=== PATIENT | female | born 1955 | race Two or more races ===

== ENCOUNTER 2019-07-26 10:16 | Inpatient (IN) | payer MEDICARE ==
[~2019-07-26] VITALS: Ht 162.6 cm; Wt 72.6 kg
[2019-07-26] MEDS ORDERED: POTASSIUM CHLO20 ME2 ORAL (10:23)
[2019-07-26] MEDS ORDERED: PRINIVIL10 MG ORAL (10:30)
[2019-07-26] MEDS ORDERED: DONEPEZIL HCL10 M2 ORAL (10:30)
[2019-07-26] MEDS ORDERED: NOVOLOG100 UNITS1 (10:30)
[2019-07-26] MEDS ORDERED: LEXAPRO10 MG ORAL (10:30)
[2019-07-26] MEDS ORDERED: CRESTOR20 MG ORAL (10:30)
[2019-07-26] MEDS ORDERED: QUETIAPINE FUMA50 MG ORAL (10:30)
[2019-07-26] MEDS ORDERED: LEVEMIR FL100 UNIT/1 SUBQ (10:30)
[2019-07-26] MEDS ORDERED: AMLODIPINE BESY10 MG ORAL (10:30)
[2019-07-26] MEDS ORDERED: NEXIUM40 MG ORAL (10:30)
[2019-07-26 10:50] VITALS: BP 128/88
[2019-07-26] MEDS ORDERED: Cefepime HCl 2 GM in NS 110 ML IV SCH (11:45)
[2019-07-26] MEDS ORDERED: Vancomycin 1 GM in NS 275 ML IV ONE (11:45)
[2019-07-26 11:48] LABS: BASOPHILS % (AUTO) 1.1 % (0.0-2.0); EOSINOPHILS % (AUTO) 0.9 % (0.0-3.0); HEMATOCRIT 41.5 % (37.0-47.0); HEMOGLOBIN 14.1 G/DL (12.0-16.0); LYMPHOCYTES % (AUTO) 17.9 % (20.0-45.0); MEAN CORPUSCULAR VOLUME 85 FL (80-99); MONOCYTES % (AUTO) 5.2 % (1.0-10.0); NEUTROPHILS % (AUTO) 74.9 % (45.0-75.0); PLATELET COUNT 230 K/UL (150-450); RED BLOOD COUNT 4.89 M/UL (4.20-5.40); RED CELL DISTRIBUTION WIDTH 10.1 % (11.6-14.8); WHITE BLOOD COUNT 7.4 K/UL (4.8-10.8)
[2019-07-26 12:00] LABS: ANION GAP 2 mmol/L (5-15); BLOOD UREA NITROGEN 19 mg/dL (7-18); CALCIUM 8.5 MG/DL (8.5-10.1); CARBON DIOXIDE 36 MMOL/L (21-32); CHLORIDE 103 MMOL/L (98-107); CREATININE 1.2 MG/DL (0.55-1.30); SODIUM 141 MMOL/L (136-145)
[2019-07-26 12:14] LABS: ALANINE AMINOTRANSFERASE 15 U/L (12-78); ALBUMIN/GLOBULIN RATIO 0.6 (1.0-2.7); ALKALINE PHOSPHATASE 72 U/L (46-116); ASPARTATE AMINO TRANSFERASE 22 U/L (15-37); BILIRUBIN,TOTAL 0.6 MG/DL (0.2-1.0); CKMB 1.1 NG/ML (0.0-3.6); CREATINE KINASE 144 U/L (26-308)
[2019-07-26 12:40] LABS: APPEARANCE,URINE CLEAR; BILIRUBIN, URINE NEGATIVE (NEGATIVE); COLOR,URINE PALE YELLOW; GLUCOSE, URINE (UA) NEGATIVE (NEGATIVE); KETONES,URINE NEGATIVE (NEGATIVE); LEUKOCYTE ESTERASE ,URINE NEGATIVE (NEGATIVE); NITRITE,URINE NEGATIVE (NEGATIVE); PH,URINE 5 (4.5-8.0); PROTEIN,URINE 2+ (NEGATIVE); UROBILINOGEN,URINE NORMAL MG/DL (0.0-1.0)
--- NOTE | 2019-07-26 12:51 | Diagnostic Imaging Report ---
Indication: Cough Technique: One view of the chest Comparison: none Findings: Suboptimal inspiration. Lungs and pleural spaces are clear. The heart size is normal. Impression: No acute process
[2019-07-26 13:00] VITALS: BP 152/97
--- NOTE | 2019-07-26 14:41 | Diagnostic Imaging Report ---
Indication: Left foot pain Technique: 3 views left foot Comparison: none Findings: There is degenerative narrowing of the second third proximal interphalangeal joint. No acute fractures. No dislocations. There is mild hallux valgus and bunion formation. Impression: No acute process
--- NOTE | 2019-07-26 14:48 | Consultation ---
Consult Note Assessment/Plan A/ 1) Cellulitis left lateral ankle 2) Stage 4 pressure ulcer left ankle 3) DM 4) Altered P/ 1) I placed the following orders: ankle x-rays, wound care, ESR, CRP, wound cultures 2) Abx per ID 3) No surgical indication, will follow Thank you Juan Verdugo DPM Jul 26, 2019 14:48
--- NOTE | 2019-07-26 15:05 | Emergency Room Report ---
History of Present Illness General Chief Complaint: General Complaint Source: EMS Present Illness HPI 64-year-old female who presents to emergency room for left wound infection. Patient reports severe pain to the left heel with any movement. Patient's history is limited due to dementia. Patient's primary care doctor Dr. Willett saw patient and sent her in for further evaluation with likely admission and IV antibiotics. Allergies: Coded Allergies: No Known Allergies (Unverified , 07/26/19) Patient History Past Medical History: dementia Nursing Documentation-[facility] Past Medical History: No History, Except For Hx Hypertension: Yes Hx Diabetes: Yes History Of Psychiatric Problem: Yes Review of Systems All Other Systems: limited Narrative Unobtainable to obtain full ROS due to patient's dementia Physical Exam Vital Signs Date Time Temp Pulse Resp B/P (MAP) Pulse Ox O2 Delivery O2 Flow Rate FiO2 07/26/19 10:17 98.6 76 18 140/82 (101) 95 Room Air 07/26/19 10:50 98 Sp02 EP Interpretation: reviewed, normal General Appearance: no apparent distress, alert, GCS 15, non-toxic Head: normocephalic, atraumatic ENT: hearing grossly normal, normal pharynx, no angioedema, normal voice Neck: full range of motion, supple/symm/no masses Respiratory: chest non-tender, lungs clear, normal breath sounds, speaking full sentences Cardiovascular #1: regular rate, rhythm, no edema Gastrointestinal: normal bowel sounds, non tender, soft, non-distended, no guarding, no rebound Rectal: deferred Genitourinary: normal inspection, no CVA tenderness Musculoskeletal: other - Moves all extremities spontaneously, 2 cm ulceration noted to left heel, tender to palpation, surrounding erythema Neurologic: alert, responsive, motor strength/tone normal, sensory intact, speech normal, other - Oriented to person, not to time or place Psychiatric: mood/affect normal Medical Decision Making Diagnostic Impression: Primary Impression: Wound infection Additional Impression: Cellulitis ER Course 64-year-old female sent in for wound infection. Patient found to have ulceration to left ankle with surrounding cellulitis. Differential includes osteomyelitis, cellulitis, superficial wound infection, necrotizing fasciitis, Patient's wound noted to be erythematous with signs of infection. Patient to be admitted for IV antibiotics. Discussed case with Dr. Aguilera who accepted admission. Laboratory Tests Test 07/26/19 11:05 07/26/19 12:00 White Blood Count 7.4 K/UL (4.8-10.8) Red Blood Count 4.89 M/UL (4.20-5.40) Hemoglobin 14.1 G/DL (12.0-16.0) Hematocrit 41.5 % (37.0-47.0) Mean Corpuscular Volume 85 FL (80-99) Mean Corpuscular Hemoglobin 28.8 PG (27.0-31.0) Mean Corpuscular Hemoglobin Concent 34.0 G/DL (32.0-36.0) Red Cell Distribution Width 10.1 % (11.6-14.8) L Platelet Count 230 K/UL (150-450) Mean Platelet Volume 6.8 FL (6.5-10.1) Neutrophils (%) (Auto) 74.9 % (45.0-75.0) Lymphocytes (%) (Auto) 17.9 % (20.0-45.0) L Monocytes (%) (Auto) 5.2 % (1.0-10.0) Eosinophils (%) (Auto) 0.9 % (0.0-3.0) Basophils (%) (Auto) 1.1 % (0.0-2.0) Prothrombin Time 10.5 SEC (9.30-11.50) Prothrombin Time INR 1.0 (0.9-1.1) Sodium Level 141 MMOL/L (136-145) Potassium Level 4.0 MMOL/L (3.5-5.1) Chloride Level 103 MMOL/L (98-107) Carbon Dioxide Level 36 MMOL/L (21-32) H Anion Gap 2 mmol/L (5-15) L Blood Urea Nitrogen 19 mg/dL (7-18) H Creatinine 1.2 MG/DL (0.55-1.30) Estimate Glomerular Filtration Rate 45.3 mL/min (>60) Glucose Level 242 MG/DL (74-106) H Calcium Level 8.5 MG/DL (8.5-10.1) Total Bilirubin 0.6 MG/DL (0.2-1.0) Aspartate Amino Transferase (AST) 22 U/L (15-37) Alanine Aminotransferase (ALT) 15 U/L (12-78) Alkaline Phosphatase 72 U/L (46-116) Total Creatine Kinase 144 U/L (26-308) Creatine Kinase MB 1.1 NG/ML (0.0-3.6) Creatine Kinase MB Relative Index 0.7 Troponin I 0.000 ng/mL (0.000-0.056) Total Protein 7.8 G/DL (6.4-8.2) Albumin 3.0 G/DL (3.4-5.0) L Globulin 4.8 g/dL Albumin/Globulin Ratio 0.6 (1.0-2.7) L Urine Color Pale yellow Urine Appearance Clear Urine pH 5 (4.5-8.0) Urine Specific [place] 1.020 (1.005-1.035) Urine Protein 2+ (NEGATIVE) H Urine Glucose (UA) Negative (NEGATIVE) Urine Ketones Negative (NEGATIVE) Urine Blood Negative (NEGATIVE) Urine Nitrite Negative (NEGATIVE) Urine Bilirubin Negative (NEGATIVE) Urine Urobilinogen Normal MG/DL (0.0-1.0) Urine Leukocyte Esterase Negative (NEGATIVE) Urine RBC 0 /HPF (0 - 2) Urine WBC 0-2 /HPF (0 - 2) Urine Squamous Epithelial Cells Few /LPF (NONE/OCC) Urine Bacteria Occasional /HPF (NONE) Lactic Acid Level 1.30 mmol/L (0.4-2.0) EKG Diagnostic Results EP Interpretation: Normal sinus rhythm rate of [address] changes consistent with ischemia Last Vital Signs Date Time Temp Pulse Resp B/P (MAP) Pulse Ox O2 Delivery O2 Flow Rate FiO2 07/26/19 13:00 98.7 78 16 152/97 97 Room Air 07/26/19 10:50 98 Disposition: ADMITTED INPATIENT Condition: Serious Referrals: Silvano Aguilera MD (PCP) Chan Davey M.D. Jul 26, 2019 15:05
[2019-07-26 15:37] VITALS: BP 147/80
[2019-07-26] MEDS: NovoLOG Insulin Flexpen SUBQ SCH ×2 (16:30→21:00)
--- NOTE | 2019-07-26 19:01 | Consultation ---
History of Present Illness General Date patient seen: Jul 26, 2019 Reason for Hospitalization: General Complaint Present Illness HPI 64F with multiple medical communities presents to [facility] for evaluation of worsening pain in left heel. Patient is [place]ian-speaking and poor historian. She provides very little history but states the left ankle hurts. She is unaware of a wound there. In ED noted to have a potentially infected left ankle wound. Surgery called to evaluate and assist with care. Surrounding cellulitis noted. No purulent drainage. Patient seen, patient evaluated, chart reviewed. No nausea vomiting fever chills. Labs noted. Allergies: Coded Allergies: No Known Allergies (Unverified , 07/26/19) Medication History Scheduled Amlodipine Besylate* (Amlodipine Besylate*), 10 MG ORAL DAILY, (Reported) Donepezil Hcl* (Donepezil Hcl*), 10 MG ORAL DAILY, (Reported) Escitalopram Oxalate* (Lexapro*), 10 MG ORAL DAILY, (Reported) Esomeprazole Magnesium (Nexium), 40 MG ORAL DAILY, (Reported) Lisinopril* (Prinivil*), 10 MG ORAL DAILY, (Reported) Potassium Chloride (Potassium Chloride), 20 MEQ ORAL DAILY, (Reported) Quetiapine Fumarate* (Quetiapine Fumarate*), 25 MG ORAL DAILY, (Reported) Rosuvastatin Calcium* (Crestor*), 20 MG ORAL DAILY, (Reported) Miscellaneous Medications Insulin Aspart (Novolog Flexpen), (Reported) Insulin Detemir (Levemir Flexpen), 0 SUBQ, (Reported) Patient History Limited by: medical condition History Provided By: Medical Record, PMD Healthcare decision maker Resuscitation status Advanced Directive on File Past Medical/Surgical History Past Medical/Surgical History: (1) Encounter for generalized patient complaints (2) Cellulitis (3) Wound infection Review of Systems Review of Symptoms General ROS: no weight loss or fever Psychological ROS: no depression or mood changes, no memory loss Ophthalmic ROS: no visual changes or eye irritation ENT ROS: no nasal congestion, hearing loss, dizziness Allergy and Immunology ROS: no allergic symptoms or urticaria Hematological and Lymphatic ROS: no swollen glands, unusual bleeding or bruising Endocrine ROS: no polyuria, polydipsia, weight changes, temperature intolerance Respiratory ROS: no cough, shortness of breath, or wheezing Cardiovascular ROS: no chest pain or dyspnea on exertion Gastrointestinal ROS: denies abdominal pain, bright red blood in stool. Musculoskeletal ROS: no myalgias or arthralgias Neurological ROS: no TIA or stroke symptoms Dermatological ROS: no new or changing skin lesions, rashes or pruritis Physical Exam Physical Exam General appearance: alert, cooperative, no distress, appears stated age Head: Normocephalic, without obvious abnormality, atraumatic Eyes: conjunctivae/corneas clear. PERRL, EOM's intact. Fundi benign Throat: Lips, mucosa, and tongue normal. Teeth and gums normal Neck: supple, symmetrical, trachea midline, no adenopathy, thyroid: not enlarged, symmetric, no tenderness/mass/nodules, no carotid bruit and no JVD Lungs: clear to auscultation bilaterally Heart: regular rate and rhythm, S1, S2 normal, no murmur, click, rub or gallop Abdomen: soft, non-tender. Bowel sounds normal. No masses, no organomegaly Extremities: extremities left lateral ankle with stage IV ulcer Pulses: 2+ and symmetric Skin: Skin color, texture, turgor normal. No rashes or lesions Neurologic: Grossly normal Last 24 Hour Vital Signs Date Time Temp Pulse Resp B/P (MAP) Pulse Ox O2 Delivery O2 Flow Rate FiO2 07/26/19 15:37 97.0 80 18 147/80 (102) 100 07/26/19 15:17 Room Air 07/26/19 14:45 98.2 60 17 138/76 97 Room Air 07/26/19 13:00 98.7 78 16 152/97 97 Room Air 07/26/19 10:50 98.7 60 16 128/88 98 Room Air 07/26/19 10:50 80 16 Room Air 98 07/26/19 10:17 98.6 76 18 140/82 (101) 95 Room Air Laboratory Tests Test 07/26/19 11:05 07/26/19 12:00 White Blood Count 7.4 K/UL (4.8-10.8) Red Blood Count 4.89 M/UL (4.20-5.40) Hemoglobin 14.1 G/DL (12.0-16.0) Hematocrit 41.5 % (37.0-47.0) Mean Corpuscular Volume 85 FL (80-99) Mean Corpuscular Hemoglobin 28.8 PG (27.0-31.0) Mean Corpuscular Hemoglobin Concent 34.0 G/DL (32.0-36.0) Red Cell Distribution Width 10.1 % (11.6-14.8) L Platelet Count 230 K/UL (150-450) Mean Platelet Volume 6.8 FL (6.5-10.1) Neutrophils (%) (Auto) 74.9 % (45.0-75.0) Lymphocytes (%) (Auto) 17.9 % (20.0-45.0) L Monocytes (%) (Auto) 5.2 % (1.0-10.0) Eosinophils (%) (Auto) 0.9 % (0.0-3.0) Basophils (%) (Auto) 1.1 % (0.0-2.0) Prothrombin Time 10.5 SEC (9.30-11.50) Prothromb Time International Ratio 1.0 (0.9-1.1) Sodium Level 141 MMOL/L (136-145) Potassium Level 4.0 MMOL/L (3.5-5.1) Chloride Level 103 MMOL/L (98-107) Carbon Dioxide Level 36 MMOL/L (21-32) H Anion Gap 2 mmol/L (5-15) L Blood Urea Nitrogen 19 mg/dL (7-18) H Creatinine 1.2 MG/DL (0.55-1.30) Estimat Glomerular Filtration Rate 45.3 mL/min (>60) Glucose Level 242 MG/DL (74-106) H Calcium Level 8.5 MG/DL (8.5-10.1) Total Bilirubin 0.6 MG/DL (0.2-1.0) Aspartate Amino Transf (AST/SGOT) 22 U/L (15-37) Alanine Aminotransferase (ALT/SGPT) 15 U/L (12-78) Alkaline Phosphatase 72 U/L (46-116) Total Creatine Kinase 144 U/L (26-308) Creatine Kinase MB 1.1 NG/ML (0.0-3.6) Creatine Kinase MB Relative Index 0.7 Troponin I 0.000 ng/mL (0.000-0.056) Total Protein 7.8 G/DL (6.4-8.2) Albumin 3.0 G/DL (3.4-5.0) L Globulin 4.8 g/dL Albumin/Globulin Ratio 0.6 (1.0-2.7) L Erythrocyte Sedimentation Rate 76 MM/HR (0-30) H Urine Color Pale yellow Urine Appearance Clear Urine pH 5 (4.5-8.0) Urine Specific [place] 1.020 (1.005-1.035) Urine Protein 2+ (NEGATIVE) H Urine Glucose (UA) Negative (NEGATIVE) Urine Ketones Negative (NEGATIVE) Urine Blood Negative (NEGATIVE) Urine Nitrite Negative (NEGATIVE) Urine Bilirubin Negative (NEGATIVE) Urine Urobilinogen Normal MG/DL (0.0-1.0) Urine Leukocyte Esterase Negative (NEGATIVE) Urine RBC 0 /HPF (0 - 2) Urine WBC 0-2 /HPF (0 - 2) Urine Squamous Epithelial Cells Few /LPF (NONE/OCC) Urine Bacteria Occasional /HPF (NONE) Lactic Acid Level 1.30 mmol/L (0.4-2.0) C-Reactive Protein, Quantitative 3.3 mg/dL (0.00-0.90) H Microbiology Date/Time Source Procedure Growth Status 07/26/19 12:27 Rectum Received Height (Feet): 5 Height (Inches): 4.00 Weight (Pounds): 132 Medications Current Medications Medications (Trade) Dose Ordered Sig/Reagan Route PRN Reason Start Time Stop Time Status Last Admin Dose Admin Acetaminophen (Tylenol) 650 mg Q4H PRN ORAL Mild Pain/Temp > 100.5 07/26/19 15:30 08/25/19 15:29 Amlodipine Besylate (Norvasc) 10 mg DAILY ORAL 07/27/19 09:00 08/26/19 08:59 Atorvastatin Calcium (Lipitor) 40 mg BEDTIME ORAL 07/26/19 21:00 08/25/19 20:59 Cefepime HCl 2 gm/ Sodium Chloride 110 ml @ 220 mls/hr Q12H IV 07/26/19 11:45 07/27/19 11:44 07/26/19 12:09 Dextrose (Dextrose 50%) 25 ml Q30M PRN IV Hypoglycemia 07/26/19 15:30 08/25/19 15:29 Dextrose (Dextrose 50%) 50 ml Q30M PRN IV Hypoglycemia 07/26/19 15:30 08/25/19 15:29 Donepezil HCl (Aricept) 10 mg QHS ORAL 07/26/19 21:00 12/19/19 20:59 Escitalopram Oxalate (Lexapro) 10 mg DAILY ORAL 07/27/19 09:00 08/26/19 08:59 Insulin Aspart (NovoLOG) BEFORE MEALS AND HS SUBQ 07/26/19 16:30 08/25/19 16:29 Insulin Detemir (Levemir) 30 units DAILY SUBQ 07/27/19 09:00 08/26/19 08:59 Lisinopril (ZestriL) 10 mg DAILY ORAL 07/27/19 09:00 08/26/19 08:59 Pantoprazole (Protonix) 40 mg DAILY ORAL 07/27/19 09:00 08/26/19 08:59 Quetiapine Fumarate (SEROqueL) 25 mg QHS ORAL 07/26/19 21:00 08/25/19 20:59 Assessment/Plan Problem List: (1) Cellulitis Assessment & Plan: 64-year-old female with potentially infected left lateral ankle stage IV ulcer. Wound evaluated bedside and noted to be stage IV with palpable bone on the lateral aspect of the left ankle. Mild serous drainage but no purulent drainage. Periwound cellulitis and skin macerated. Pulses diminished distally. Tender. Motor neurosensory intact with sensory bearing somewhat diminished No acute surgical intervention. Local wound care. Podiatry consultation for evaluation given location and follow-up Keep leg elevated when in bed Heel protectors elevate heel from pressure with pillows Turn every 2 hours Offload pressure as patient is at risk for developing decubiti Antibiotic as per ID Thank you will follow with recommendations ICD Codes: L03.90 - Cellulitis, unspecified SNOMED: [id number] (2) Wound infection ICD Codes: T14.8XXA - Other injury of unspecified body region, initial encounter; L08.9 - Local infection of the skin and subcutaneous tissue, unspecified SNOMED: [id number] Paddy Stephens Jul 26, 2019 19:01
[2019-07-26 20:00] VITALS: BP 155/92
--- NOTE | 2019-07-26 20:45 | Consultation ---
DATE OF CONSULTATION: 07/26/2019 CONSULTING PHYSICIAN: Juan Bruce D.P.M. REFERRING PHYSICIAN: Silvano Aguilera M.D. REASON FOR CONSULTATION: Cellulitis of the left lower extremity in the presence of ankle wound and diabetes mellitus. HISTORY OF PRESENT ILLNESS: The patient is a 64-year-old female, who is in the emergency room at this moment and will subsequently be admitted for left lower extremity infection. The patient is altered. History was obtained through chart review. PAST MEDICAL HISTORY: Significant for diabetes mellitus. SURGICAL HISTORY: Unknown. MEDICATIONS: Per MAR and currently include cefepime and 1 dose of vancomycin. ALLERGIES: She has no known drug allergies. SOCIAL HISTORY: The patient is resides in some type of assisted living at [facility]. FAMILY HISTORY: Noncontributory. REVIEW OF SYSTEMS: Unobtainable due to the patient's current mental status. She is altered and confused. PHYSICAL EXAMINATION: VITAL SIGNS: Temperature is 98.7, pulse is 78, respiration rate is 16, blood pressure is 152/97, and saturating 97% on room air. LOWER EXTREMITY PHYSICAL EXAM: VASCULAR: Palpable pedal pulses noted bilaterally, dorsalis pedis and posterior tibial arteries. Cap fill is normal. There is no edema or cyanosis noted. DERMATOLOGICAL: There is a full-thickness ulceration noted on the lateral aspect of the left ankle over the malleoli. Bone is exposed. Wound is full thickness as there is a surrounding erythema. No malodor is noted. No discharge is noted from the site. No fluctuance is appreciated. There is pain upon palpation of the area as the patient retracts upon palpation. Remaining dermatological exam is unremarkable. NEUROLOGICAL: Deferred. MUSCULOSKELETAL: No gross deformities are noted. The patient is able to extend both knees fully. Ambulatory status is unknown. LABORATORY DATA: White blood cell count is 7.4, hemoglobin and hematocrit is 14.1 and 41.5, and platelet count is 230,000. Lactic acid is 1.30. Glucose is 242, BUN is 19, and creatinine is 1.2. Chloride is 103, potassium is 4.0, and sodium is 141. INR is 1.0. Lower extremity imaging, none is noted. Foot x-ray is pending. ASSESSMENT: 1. Cellulitis, left lateral ankle. 2. Stage IV pressure ulcer, left ankle. 3. Type 2 diabetes mellitus. 4. Altered. PLAN: 1. I placed the following orders. Left ankle x-rays, wound care orders to include cleaning the site with normal saline, applying Xeroform and dry dressing daily. Sedimentation rate was ordered, CRP ordered, and wound cultures ordered. 2. Antibiotics per Infectious Disease. Dr. Verduzco has been consulted. 3. No surgical indication at this time. We will follow the patient. Thank you for the courtesy of this consultation Dr. Aguilera. Juan Bruce D.P.M. DR: LINDA JOB#: [id number] CC:
[2019-07-26] MEDS: Atorvastatin 20mg tab ORAL SCH (20:57)
[2019-07-26] MEDS: Donepezil 10mg tab ORAL SCH (20:57)
[2019-07-26] MEDS: Vancomycin 750mg/D5W 275ml IVPB SCH ×2 (23:10)
[2019-07-27] VITALS: BP 133/82
[2019-07-27 04:00] VITALS: BP 144/78
[2019-07-27] MEDS: NovoLOG Insulin Flexpen SUBQ SCH ×4 (06:09→21:20)
[2019-07-27 08:00] VITALS: BP 142/88
[2019-07-27 08:12] LABS: BASOPHILS % (AUTO) 0.8 % (0.0-2.0); EOSINOPHILS % (AUTO) 3.5 % (0.0-3.0); HEMATOCRIT 37.6 % (37.0-47.0); HEMOGLOBIN 12.8 G/DL (12.0-16.0); LYMPHOCYTES % (AUTO) 19.4 % (20.0-45.0); MEAN CORPUSCULAR VOLUME 86 FL (80-99); MONOCYTES % (AUTO) 5.1 % (1.0-10.0); NEUTROPHILS % (AUTO) 71.2 % (45.0-75.0); PLATELET COUNT 245 K/UL (150-450); RED BLOOD COUNT 4.38 M/UL (4.20-5.40); RED CELL DISTRIBUTION WIDTH 11.4 % (11.6-14.8); WHITE BLOOD COUNT 7.8 K/UL (4.8-10.8)
[2019-07-27 08:34] LABS: ALBUMIN 2.8 G/DL (3.4-5.0); ALBUMIN/GLOBULIN RATIO 0.6 (1.0-2.7); ALKALINE PHOSPHATASE 65 U/L (46-116); ANION GAP 2 mmol/L (5-15); ASPARTATE AMINO TRANSFERASE 16 U/L (15-37); BILIRUBIN,TOTAL 0.7 MG/DL (0.2-1.0); BLOOD UREA NITROGEN 15 mg/dL (7-18); CALCIUM 8.4 MG/DL (8.5-10.1); CARBON DIOXIDE 34 MMOL/L (21-32); CHLORIDE 103 MMOL/L (98-107); POTASSIUM 3.4 MMOL/L (3.5-5.1); SODIUM 139 MMOL/L (136-145)
[2019-07-27] MEDS ORDERED: Lisinopril 10mg tab ORAL SCH (09:00)
[2019-07-27] MEDS: Levemir Flexpen SUBQ SCH (09:44)
--- NOTE | 2019-07-27 09:53 | Diagnostic Imaging Report ---
Indication: Left ankle pain Technique: 3 views of the left ankle Comparison: none Findings: Positioning is somewhat limited. Bones are somewhat osteoporotic. No definite acute fractures. No dislocations. There is slight lateral soft tissue swelling. Impression: No acute process
[2019-07-27 10:25] LABS: ALANINE AMINOTRANSFERASE 18 U/L (12-78)
--- NOTE | 2019-07-27 10:43 | Consultation ---
Consult Note Consult Note asked to evaluate at the request of Dr Barboza for proteinuria and electrolyte imbalances 64-year-old female who presents to emergency room for left wound infection. Patient reports severe pain to the left heel with any movement. Patient's history is limited due to dementia. Patient's primary care doctor Dr. Willett saw patient and sent her in for further evaluation with likely admission and IV antibiotics. No Known Allergies (Unverified , 07/26/19) Past Medical History: No History, Except For Hx Hypertension: Yes Hx Diabetes: Yes History Of Psychiatric Problem: Yes interviewed examined data reviewed Assessment/Plan Proteinuria HypoKalemia Cellulitis infected left lateral ankle stage IV ulcer. Wound infection DM / Proteinuria / Nephropathy HTN Slow Hydrate K Supplement wound care / Antibiotics BS and BP in check Abraham Marroquin MD Jul 27, 2019 10:43
[2019-07-27] MEDS: Vancomycin 750mg/D5W 275ml IVPB SCH ×4 (11:12→23:26)
[2019-07-27 12:00] VITALS: BP 128/75
[2019-07-27] MEDS ORDERED: LORazepam Inj 2mg/ml 1ml IV SCH (12:30)
[2019-07-27] MEDS: NS w/KCl 40mEq 1,000 ML IV SCH (12:39)
[2019-07-27] MEDS: Docusate 100mg cap ORAL SCH ×2 (12:39→17:35)
[2019-07-27] MEDS: Cefepime HCl 1 GM in D5W 55 ML IVPB SCH (15:07)
[2019-07-27 16:00] VITALS: BP 127/74
--- NOTE | 2019-07-27 16:28 | Diagnostic Imaging Report ---
Indication: Full-thickness ulceration in the lateral aspect of the left ankle with bone exposure Technique: Sagittal, axial, and coronal T1 FSE and FSE STIR images of the ankle Comparison: Reference made to plain radiographs of earlier the same day Findings: A marker tillman the area of ulceration in the lateral ankle. This area demonstrates some mild signal changes to suggest soft tissue edema. There is marked increased STIR signal abnormality of the distal fibula. This also demonstrates abnormal decreased T1 signal. No tubular, talar, or calcaneal signal abnormality. There is a small ankle joint effusion. No evidence of midfoot signal abnormality. No discrete soft tissue fluid collection to suggest abscess demonstrated. There is musculature and interstitial edema of the plantar musculotendinous compartment Impression: Positive for osteomyelitis of the distal fibula, due to the area of ulceration. Small ankle joint effusion Edema of the subcutaneous fat in the region of the marked ulcer, likely cellulitis. There is also edema of the deep plantar compartment which could indicate cellulitis/myositis. Dr. Stephens notified by phone at the time of interpretation
--- NOTE | 2019-07-27 17:21 | Surgery Progress Note ---
Surgery Progress Note Subjective Additional Comments comfortable stable no complaints MRI noted labs okay exam stable Objective Last 24 Hour Vital Signs Date Time Temp Pulse Resp B/P (MAP) Pulse Ox O2 Delivery O2 Flow Rate FiO2 07/27/19 16:00 98.2 78 18 127/74 (91) 97 07/27/19 12:00 98.7 78 20 128/75 (92) 98 07/27/19 09:31 133/79 07/27/19 09:27 75 133/79 07/27/19 09:00 Room Air 07/27/19 08:00 98.1 90 16 142/88 (106) 98 07/27/19 04:00 97.8 70 18 144/78 (100) 94 07/27/19 00:00 97.7 73 18 133/82 (99) 96 07/26/19 21:00 Room Air 07/26/19 20:00 98.8 80 20 155/92 (113) 96 I&O Intake and Output 07/26/19 07/27/19 19:00 07:00 Intake Total 625 ml 275.000 ml Balance 625 ml 275.000 ml Intake Oral 240 ml IV Total 385 ml 275.000 ml # Voids 1 2 # Bowel Movements 1 Dressing: dry Wound: clean Cardiovascular: RSR Respiratory: clear Abdomen: soft, flat, non-tender, present bowel sounds Extremities: edema, no tenderness, no cyanosis, pulses, other Laboratory Tests Test 07/27/19 07:40 White Blood Count 7.8 K/UL (4.8-10.8) Red Blood Count 4.38 M/UL (4.20-5.40) Hemoglobin 12.8 G/DL (12.0-16.0) Hematocrit 37.6 % (37.0-47.0) Mean Corpuscular Volume 86 FL (80-99) Mean Corpuscular Hemoglobin 29.3 PG (27.0-31.0) Mean Corpuscular Hemoglobin Concent 34.1 G/DL (32.0-36.0) Red Cell Distribution Width 11.4 % (11.6-14.8) L Platelet Count 245 K/UL (150-450) Mean Platelet Volume 6.4 FL (6.5-10.1) L Neutrophils (%) (Auto) 71.2 % (45.0-75.0) Lymphocytes (%) (Auto) 19.4 % (20.0-45.0) L Monocytes (%) (Auto) 5.1 % (1.0-10.0) Eosinophils (%) (Auto) 3.5 % (0.0-3.0) H Basophils (%) (Auto) 0.8 % (0.0-2.0) Prothrombin Time 10.7 SEC (9.30-11.50) Prothromb Time International Ratio 1.0 (0.9-1.1) Activated Partial Thromboplast Time 27 SEC (23-33) Sodium Level 139 MMOL/L (136-145) Potassium Level 3.4 MMOL/L (3.5-5.1) L Chloride Level 103 MMOL/L (98-107) Carbon Dioxide Level 34 MMOL/L (21-32) H Anion Gap 2 mmol/L (5-15) L Blood Urea Nitrogen 15 mg/dL (7-18) Creatinine 1.0 MG/DL (0.55-1.30) Estimat Glomerular Filtration Rate 55.8 mL/min (>60) Glucose Level 115 MG/DL (74-106) #H Hemoglobin A1c 6.8 % (4.3-6.0) H Calcium Level 8.4 MG/DL (8.5-10.1) L Total Bilirubin 0.7 MG/DL (0.2-1.0) Aspartate Amino Transf (AST/SGOT) 16 U/L (15-37) Alanine Aminotransferase (ALT/SGPT) 18 U/L (12-78) Alkaline Phosphatase 65 U/L (46-116) Total Protein 7.2 G/DL (6.4-8.2) Albumin 2.8 G/DL (3.4-5.0) L Globulin 4.4 g/dL Albumin/Globulin Ratio 0.6 (1.0-2.7) L Plan Problems: (1) Cellulitis Assessment & Plan: 64-year-old female with potentially infected left lateral ankle stage IV ulcer. Wound evaluated bedside and noted to be stage IV with palpable bone on the lateral aspect of the left ankle. Mild serous drainage but no purulent drainage. Periwound cellulitis and skin macerated. Pulses diminished distally. Tender. Motor neurosensory intact with sensory bearing somewhat diminished Positive for osteomyelitis of the distal fibula, due to the area of ulceration. Small ankle joint effusion Edema of the subcutaneous fat in the region of the marked ulcer, likely cellulitis. There is also edema of the deep plantar compartment which could indicate cellulitis/myositis. No acute surgical intervention, needs abx and local wound care for now Local wound care. Podiatry consultation appreciated Keep leg elevated when in bed Heel protectors elevate heel from pressure with pillows Turn every 2 hours Offload pressure as patient is at risk for developing decubiti Antibiotic as per ID Thank you will follow with recommendations (2) Wound infection Paddy Stephens Jul 27, 2019 17:21
--- NOTE | 2019-07-27 18:00 | Consultation ---
DATE OF CONSULTATION: 07/27/2019 INFECTIOUS DISEASES CONSULTATION CONSULTING PHYSICIAN: Amador Verduzco M.D. ATTENDING PHYSICIAN: Silvano Aguilera M.D. REASON FOR CONSULTATION: Cellulitis and wound infection in the left foot. HISTORY OF PRESENT ILLNESS: The patient is a 64-year-old female who is a long term resident, admitted yesterday complaining of pain in the left heel. It is not clear how long the wound was present, but according to the surgeon the bone is also palpable. The patient has poor source of history. PAST MEDICAL HISTORY: Significant for diabetes mellitus, hypertension, dementia, and psychiatric problem. ALLERGIES: No known drug allergies. MEDICATIONS: Getting lisinopril, amlodipine, Colace, potassium chloride, Levemir insulin, Protonix, vancomycin, Seroquel, Aricept, cefepime in the ER. SOCIAL HISTORY: Single, has 2 kids. Denies alcohol, drug abuse, or smoking. The patient has no pain. PHYSICAL EXAMINATION: VITAL SIGNS: Temperature 98.1, pulse 75, blood pressure 133/79. GENERAL APPEARANCE: No acute distress, seems to have normal weight. HEAD AND NECK: [place] conjunctiva. HEART: Normal rate. LUNGS: Clear. ABDOMEN: Soft and nontender. EXTREMITIES: No edema. SKIN: Pressure ulcer stage IV in lateral left ankle. NEUROLOGIC: Awake, alert, verbal, seems to have problem with memory. LABORATORY AND DIAGNOSTIC DATA: WBC 11.8, hemoglobin 12.8, hematocrit 37.6, platelets 245,000. Sodium 139, potassium 3.4, chloride 103, bicarb 34, glucose 115. Hemoglobin A1c 6.8. BUN 15, creatinine 1. CRP elevated . ESR is elevated 76. Wound culture is pending. Chest x-ray was negative. Ankle x-ray is also negative. Foot x-ray is also negative. IMPRESSION: 1. Cellulitis, wound infection in the left foot, lateral ankle. 2. The patient has pressure ulcer. 3. Alzheimer's dementia. 4. Diabetes mellitus. 5. Hypertension. 6. Psychosis. RECOMMENDATION: Continue IV vancomycin, add cefepime. We will follow up the culture and ask for MRI of the left foot. At the end of my exam, I thank Dr. Aguilera for involving me in the care of this patient. Amador Verduzco M.D. DR: Dilcia JOB#: [id number] CC: JACQUELINE
[2019-07-27 20:00] VITALS: BP 142/77
[2019-07-27] MEDS: Donepezil 10mg tab ORAL SCH (21:16)
[2019-07-27] MEDS: Atorvastatin 20mg tab ORAL SCH (21:17)
[2019-07-28] VITALS: BP 144/76
[2019-07-28 04:00] VITALS: BP 133/81
[2019-07-28] MEDS: NovoLOG Insulin Flexpen SUBQ SCH ×4 (06:09→21:00)
[2019-07-28 06:29] LABS: BASOPHILS % (AUTO) 0.9 % (0.0-2.0); EOSINOPHILS % (AUTO) 5.3 % (0.0-3.0); HEMATOCRIT 37.4 % (37.0-47.0); HEMOGLOBIN 12.7 G/DL (12.0-16.0); MEAN CORPUSCULAR VOLUME 86 FL (80-99); MONOCYTES % (AUTO) 5.1 % (1.0-10.0); NEUTROPHILS % (AUTO) 59.7 % (45.0-75.0); PLATELET COUNT 229 K/UL (150-450); RED BLOOD COUNT 4.33 M/UL (4.20-5.40); WHITE BLOOD COUNT 6.9 K/UL (4.8-10.8)
[2019-07-28 07:00] LABS: ALANINE AMINOTRANSFERASE 16 U/L (12-78); ALBUMIN 2.6 G/DL (3.4-5.0); ALBUMIN/GLOBULIN RATIO 0.6 (1.0-2.7); ALKALINE PHOSPHATASE 62 U/L (46-116); ANION GAP 1 mmol/L (5-15); ASPARTATE AMINO TRANSFERASE 15 U/L (15-37); BILIRUBIN,TOTAL 0.5 MG/DL (0.2-1.0); BLOOD UREA NITROGEN 16 mg/dL (7-18); CALCIUM 8.1 MG/DL (8.5-10.1); CARBON DIOXIDE 34 MMOL/L (21-32); CHLORIDE 104 MMOL/L (98-107); CHOLESTEROL 104 MG/DL (< 200); CREATININE 0.9 MG/DL (0.55-1.30); FERRITIN 167 NG/ML (8-388); GAMMA GLUTAMYL TRANSPEPTIDASE 5 U/L (5-85); HDL CHOLESTEROL 35 MG/DL (40-60); PHOSPHORUS 3.6 MG/DL (2.5-4.9); POTASSIUM 3.9 MMOL/L (3.5-5.1); SODIUM 139 MMOL/L (136-145); TRIGLYCERIDES 99 MG/DL (30-150)
--- NOTE | 2019-07-28 07:00 | History and Physical Report ---
DATE OF ADMISSION: 07/26/2019 HISTORY OF PRESENT ILLNESS: The patient was admitted for left ankle wound, may need I and D and also IV antibiotics due to her elevated CO2. The patient complains of pain where the wound is. Denies nausea, vomiting, or diarrhea. No fever or chills. No shortness of breath or cough. Denies orthopnea. Also, the patient has a small brown discoloration on the right toe. PAST MEDICAL HISTORY: Organic brain syndrome, hypertension, mood disorder, NIDDM, GERD, and hyperlipidemia. PAST SURGICAL HISTORY: Denies. ALLERGIES: No known allergies. MEDICATIONS: Benazepril, Lexapro, insulin, lisinopril, Seroquel, and Crestor. SOCIAL HISTORY: The patient has a history of smoking. No history of illicit drugs. Comes from assisted living. FAMILY HISTORY: Noncontributory. REVIEW OF SYSTEMS: HEENT: Denies headaches. RESPIRATORY: Denies shortness of breath. Denies cough. CARDIOVASCULAR: Denies chest pain. Denies nausea, vomiting, or diarrhea. EXTREMITIES: Does have some pain in the left ankle where the wound is. CENTRAL NERVOUS SYSTEM: Denies change in vision or speech pattern. PHYSICAL EXAMINATION: VITAL SIGNS: Temperature is 98.7, pulse is 78, and blood pressure is 128/75. HEENT: PERRLA. NECK: Supple. CHEST: Clear to auscultation. CARDIOVASCULAR: Regular rate and rhythm. No murmurs or extra sounds. GASTROINTESTINAL: Soft, nontender, and nondistended. No organomegaly. EXTREMITIES: No edema. Moves all four extremities. The patient does have a wound on the left ankle. The patient also has a small on the right toe. Otherwise, generalized weakness, which is chronic and is nothing new. LABORATORY DATA: WBC of 7.4, hemoglobin 14.1, and platelets of 230,000. Sodium 141, potassium 4, BUN of 19, creatinine of 1.2, and glucose of 242. ASSESSMENT AND PLAN: Cellulitis of the left ankle/foot and elevated CO2, rule out dehydration. I have basically consulted Dr. Moreno for the psychiatric condition and medication as well as Dr. Moreno, Dr. Marroquin, Dr. Bruce, Dr. Paddy Stephens, and Dr. Amador Verduzco and then also consulted for the wound management as well as for possible I and D, possible IV antibiotics, for dehydration, and for psych medications. Silvano Aguilera M.D. DR: TO JOB#: [id number] CC:
[2019-07-28 07:50] LABS: % IRON SATURATION 23 % (15-50); IRON 33 ug/dL (50-175); TOTAL IRON BINDING CAPACITY 146 ug/dL (250-450)
[2019-07-28 08:00] VITALS: BP 137/76
[2019-07-28] MEDS: NS w/KCl 40mEq 1,000 ML IV SCH (08:35)
[2019-07-28] MEDS: Lisinopril 10mg tab ORAL SCH (08:44)
[2019-07-28] MEDS: Docusate 100mg cap ORAL SCH ×3 (08:44→17:10)
[2019-07-28] MEDS: Levemir Flexpen SUBQ SCH (08:46)
[2019-07-28 12:00] VITALS: BP 134/77
[2019-07-28] MEDS: Vancomycin 750mg/D5W 275ml IVPB SCH ×2 (13:14)
--- NOTE | 2019-07-28 13:16 | Nephrology Progress Note ---
Assessment/Plan Problem List: (1) Diabetic nephropathy (2) Electrolyte imbalance Assessment: Low K (3) HTN (hypertension) (4) Diabetes mellitus Assessment Proteinuria HypoKalemia Cellulitis infected left lateral ankle stage IV ulcer. Wound infection DM / Proteinuria / Nephropathy HTN Plan Slow Hydrate K Supplement wound care / Antibiotics BS and BP in check Subjective ROS Limited/Unobtainable: No Constitutional: Reports: malaise, weakness Objective Objective Last 24 Hour Vital Signs Date Time Temp Pulse Resp B/P (MAP) Pulse Ox O2 Delivery O2 Flow Rate FiO2 07/28/19 08:44 85 137/76 07/28/19 08:44 137/76 07/28/19 08:00 98.1 85 18 137/76 (96) 100 07/28/19 04:00 97.8 89 18 133/81 (98) 100 07/28/19 00:00 97.9 72 20 144/76 (98) 97 07/27/19 20:01 Room Air 07/27/19 20:00 97.9 82 20 142/77 (98) 96 07/27/19 16:00 98.2 78 18 127/74 (91) 97 Intake and Output 07/27/19 07/28/19 19:00 07:00 Intake Total 720 ml Balance 720 ml Intake Oral 720 ml # Voids 5 3 Laboratory Tests 07/28/19 05:30: White Blood Count 6.9, Red Blood Count 4.33, Hemoglobin 12.7, Hematocrit 37.4, Mean Corpuscular Volume 86, Mean Corpuscular Hemoglobin 29.3, Mean Corpuscular Hemoglobin Concent 33.9, Red Cell Distribution Width 11.0L, Platelet Count 229, Mean Platelet Volume 6.5, Neutrophils (%) (Auto) 59.7, Lymphocytes (%) (Auto) 29.0, Monocytes (%) (Auto) 5.1, Eosinophils (%) (Auto) 5.3H, Basophils (%) (Auto ) 0.9, Sodium Level 139, Potassium Level 3.9, Chloride Level 104, Carbon Dioxide Level 34H, Anion Gap 1L, Blood Urea Nitrogen 16, Creatinine 0.9, Estimat Glomerular Filtration Rate > 60, Glucose Level 129H, Uric Acid 4.1, Calcium Level 8.1L, Phosphorus Level 3.6, Magnesium Level 1.6L, Iron Level 33L, Total Iron Binding Capacity 146L, Percent Iron Saturation 23, Unsaturated Iron Binding 113, Ferritin 167, Total Bilirubin 0.5, Gamma Glutamyl Transpeptidase 5 , Aspartate Amino Transf (AST/SGOT) 15, Alanine Aminotransferase (ALT/SGPT) 16, Alkaline Phosphatase 62, Troponin I 0.001, C-Reactive Protein, Quantitative 1.5H , Pro-B-Type Natriuretic Peptide 152H, Total Protein 6.8, Albumin 2.6L, Globulin 4.2, Albumin/Globulin Ratio 0.6L, Triglycerides Level 99, Cholesterol Level 104, LDL Cholesterol 50, HDL Cholesterol 35L, Cholesterol/HDL Ratio 3.0L, Vitamin B12 Level 642, Folate 25.2, Thyroid Stimulating Hormone (TSH) 0.704 07/28/19 10:10: Vancomycin Level Trough 16.5H Height (Feet): 5 Height (Inches): 4.00 Weight (Pounds): 161 General Appearance: no apparent distress Abdomen: soft Extremities: other - unchanged Abraham Marroquin MD Jul 28, 2019 13:16
--- NOTE | 2019-07-28 14:11 | Infectious Diseases Prog Note ---
Assessment/Plan Assessment/Plan IMPRESSION: 1. Cellulitis, wound infection in the left foot, lateral ankle. 2. The patient has pressure ulcer. 3. Alzheimer's dementia. 4. Diabetes mellitus. 5. Hypertension. 6. Psychosis. 7. Osteomyelitis of distal fibula 8. Bacteremia RECOMMENDATION: Continue IV vancomycin and cefepime. We will follow up the cultures Subjective ROS Limited/Unobtainable: Yes Constitutional: Denies: fever Allergies: Coded Allergies: No Known Allergies (Unverified , 07/26/19) Objective Vital Signs Last 24 Hour Vital Signs Date Time Temp Pulse Resp B/P (MAP) Pulse Ox O2 Delivery O2 Flow Rate FiO2 07/28/19 08:44 85 137/76 07/28/19 08:44 137/76 07/28/19 08:00 98.1 85 18 137/76 (96) 100 07/28/19 04:00 97.8 89 18 133/81 (98) 100 07/28/19 00:00 97.9 72 20 144/76 (98) 97 07/27/19 20:01 Room Air 07/27/19 20:00 97.9 82 20 142/77 (98) 96 07/27/19 16:00 98.2 78 18 127/74 (91) 97 Height (Feet): 5 Height (Inches): 4.00 Weight (Pounds): 161 General Appearance: no acute distress HEENT: mucous membranes moist Respiratory/Chest: lungs clear Cardiovascular: normal rate Abdomen: soft, non tender Extremities: no edema Skin: ulcers, other - left ankle Neurologic/Psychiatric: alert, disoriented Microbiology Date/Time Source Procedure Growth Status 07/26/19 12:00 Blood Blood Culture - Preliminary Gram Positive Cocci Resulted 07/26/19 12:00 Blood Blood Culture - Preliminary NO GROWTH AFTER 24 HOURS Resulted 07/26/19 12:27 Nasal Nares MRSA Culture - Final NO METHICILLIN RESISTANT STAPH AUREUS... Complete 07/26/19 17:30 Ankle Left Gram Stain - Final Complete 07/26/19 17:30 Wound Culture - Final Staphylococcus Sp Coag Neg Complete 07/26/19 12:27 Rectum VRE Culture - Final NO VANCOMYCIN RESISTANT ENTEROCOCCUS ... Complete 07/26/19 12:27 Rectum - Final NO CARBAPENEM-RESISTANT ENTEROBACTERI... Complete Laboratory Tests Test 07/28/19 05:30 07/28/19 10:10 White Blood Count 6.9 K/UL (4.8-10.8) Red Blood Count 4.33 M/UL (4.20-5.40) Hemoglobin 12.7 G/DL (12.0-16.0) Hematocrit 37.4 % (37.0-47.0) Mean Corpuscular Volume 86 FL (80-99) Mean Corpuscular Hemoglobin 29.3 PG (27.0-31.0) Mean Corpuscular Hemoglobin Concent 33.9 G/DL (32.0-36.0) Red Cell Distribution Width 11.0 % (11.6-14.8) L Platelet Count 229 K/UL (150-450) Mean Platelet Volume 6.5 FL (6.5-10.1) Neutrophils (%) (Auto) 59.7 % (45.0-75.0) Lymphocytes (%) (Auto) 29.0 % (20.0-45.0) Monocytes (%) (Auto) 5.1 % (1.0-10.0) Eosinophils (%) (Auto) 5.3 % (0.0-3.0) H Basophils (%) (Auto) 0.9 % (0.0-2.0) Sodium Level 139 MMOL/L (136-145) Potassium Level 3.9 MMOL/L (3.5-5.1) Chloride Level 104 MMOL/L (98-107) Carbon Dioxide Level 34 MMOL/L (21-32) H Anion Gap 1 mmol/L (5-15) L Blood Urea Nitrogen 16 mg/dL (7-18) Creatinine 0.9 MG/DL (0.55-1.30) Estimat Glomerular Filtration Rate > 60 mL/min (>60) Glucose Level 129 MG/DL (74-106) H Uric Acid 4.1 MG/DL (2.6-7.2) Calcium Level 8.1 MG/DL (8.5-10.1) L Phosphorus Level 3.6 MG/DL (2.5-4.9) Magnesium Level 1.6 MG/DL (1.8-2.4) L Iron Level 33 ug/dL (50-175) L Total Iron Binding Capacity 146 ug/dL (250-450) L Percent Iron Saturation 23 % (15-50) Unsaturated Iron Binding 113 ug/dL (112-346) Ferritin 167 NG/ML (8-388) Total Bilirubin 0.5 MG/DL (0.2-1.0) Gamma Glutamyl Transpeptidase 5 U/L (5-85) Aspartate Amino Transf (AST/SGOT) 15 U/L (15-37) Alanine Aminotransferase (ALT/SGPT) 16 U/L (12-78) Alkaline Phosphatase 62 U/L (46-116) Troponin I 0.001 ng/mL (0.000-0.056) C-Reactive Protein, Quantitative 1.5 mg/dL (0.00-0.90) H Pro-B-Type Natriuretic Peptide 152 pg/mL (0-125) H Total Protein 6.8 G/DL (6.4-8.2) Albumin 2.6 G/DL (3.4-5.0) L Globulin 4.2 g/dL Albumin/Globulin Ratio 0.6 (1.0-2.7) L Triglycerides Level 99 MG/DL (30-150) Cholesterol Level 104 MG/DL (< 200) LDL Cholesterol 50 mg/dL (<100) HDL Cholesterol 35 MG/DL (40-60) L Cholesterol/HDL Ratio 3.0 (3.3-4.4) L Vitamin B12 Level 642 PG/ML (193-986) Folate 25.2 NG/ML (8.6-58.9) Thyroid Stimulating Hormone (TSH) 0.704 uiU/mL (0.358-3.740) Vancomycin Level Trough 16.5 ug/mL (5.0-12.0) H Current Medications Medications (Trade) Dose Ordered Sig/Reagan Route PRN Reason Start Time Stop Time Status Last Admin Dose Admin Acetaminophen (Tylenol) 650 mg Q4H PRN ORAL Mild Pain/Temp > 100.5 07/26/19 15:30 08/25/19 15:29 Amlodipine Besylate (Norvasc) 10 mg DAILY ORAL 07/28/19 09:00 08/26/19 08:59 07/28/19 08:44 Atorvastatin Calcium (Lipitor) 40 mg BEDTIME ORAL 07/26/19 21:00 08/25/19 20:59 07/27/19 21:17 Cefepime HCl 1 gm/ Dextrose 55 ml @ 110 mls/hr Q24H IVPB 07/27/19 14:00 08/03/19 13:59 07/27/19 15:07 Dextrose (Dextrose 50%) 25 ml Q30M PRN IV Hypoglycemia 07/26/19 15:30 08/25/19 15:29 Dextrose (Dextrose 50%) 50 ml Q30M PRN IV Hypoglycemia 07/26/19 15:30 08/25/19 15:29 Docusate Sodium (Colace) 100 mg THREE TIMES A DAY ORAL 07/27/19 13:00 08/26/19 12:59 07/28/19 13:13 Donepezil HCl (Aricept) 10 mg QHS ORAL 07/26/19 21:00 08/25/19 20:59 07/27/19 21:16 Escitalopram Oxalate (Lexapro) 10 mg DAILY ORAL 07/29/19 09:00 08/28/19 08:59 Insulin Aspart (NovoLOG) BEFORE MEALS AND HS SUBQ 07/26/19 16:30 08/25/19 16:29 07/28/19 12:39 Insulin Detemir (Levemir) 30 units DAILY SUBQ 07/27/19 09:00 08/26/19 08:59 07/28/19 08:46 Lisinopril (ZestriL) 10 mg DAILY ORAL 07/28/19 09:00 08/26/19 08:59 07/28/19 08:44 Pantoprazole (Protonix) 40 mg DAILY ORAL 07/27/19 09:00 08/26/19 08:59 07/28/19 08:44 Potassium Chloride/Sodium Chloride 1,000 ml @ 50 mls/hr Q20H IV 07/27/19 12:00 08/26/19 11:59 07/28/19 08:35 Quetiapine Fumarate (SEROqueL) 25 mg QHS ORAL 07/26/19 21:00 08/25/19 20:59 07/27/19 21:17 Vancomycin HCl (Vanco rx to dose) 1 ea DAILY PRN MISC Per rx protocol 07/26/19 19:15 08/25/19 19:14 Vancomycin HCl 750 mg/Dextrose 275 ml @ 183.333 mls/hr Q12HR@1100,2300 IVPB 07/26/19 23:00 07/31/19 22:59 07/28/19 13:14 Amador Verduzco MD Jul 28, 2019 14:11
[2019-07-28] MEDS: Cefepime HCl 1 GM in D5W 55 ML IVPB SCH (14:50)
--- NOTE | 2019-07-28 15:17 | Podiatric Progress Note ---
Assessment/Plan Patient Letitia Whitt is a 64 year old female who was admitted on Jul 26, 2019 at 13:39 with Assessment/Plan A/ 1) Osteomyelitis left distal fibula 2) Cellulitis left lateral ankle 3) Stage 4 pressure ulcer left ankle 4) DM 5) Altered P/ 1) Appreciate ID recs. Osteo management per ID 2) Continue local wound care 3) No surgical indication, will follow Subjective Allergies: Coded Allergies: No Known Allergies (Unverified , 07/26/19) Subjective Patient more coherent today. Has no pain at wound site. Objective Exam Last 24 Hour Vital Signs Date Time Temp Pulse Resp B/P (MAP) Pulse Ox O2 Delivery O2 Flow Rate FiO2 07/28/19 08:44 85 137/76 07/28/19 08:44 137/76 07/28/19 08:00 98.1 85 18 137/76 (96) 100 07/28/19 04:00 97.8 89 18 133/81 (98) 100 07/28/19 00:00 97.9 72 20 144/76 (98) 97 07/27/19 20:01 Room Air 07/27/19 20:00 97.9 82 20 142/77 (98) 96 07/27/19 16:00 98.2 78 18 127/74 (91) 97 Laboratory Tests Test 07/28/19 05:30 07/28/19 10:10 White Blood Count 6.9 K/UL (4.8-10.8) Red Blood Count 4.33 M/UL (4.20-5.40) Hemoglobin 12.7 G/DL (12.0-16.0) Hematocrit 37.4 % (37.0-47.0) Mean Corpuscular Volume 86 FL (80-99) Mean Corpuscular Hemoglobin 29.3 PG (27.0-31.0) Mean Corpuscular Hemoglobin Concent 33.9 G/DL (32.0-36.0) Red Cell Distribution Width 11.0 % (11.6-14.8) L Platelet Count 229 K/UL (150-450) Mean Platelet Volume 6.5 FL (6.5-10.1) Neutrophils (%) (Auto) 59.7 % (45.0-75.0) Lymphocytes (%) (Auto) 29.0 % (20.0-45.0) Monocytes (%) (Auto) 5.1 % (1.0-10.0) Eosinophils (%) (Auto) 5.3 % (0.0-3.0) H Basophils (%) (Auto) 0.9 % (0.0-2.0) Sodium Level 139 MMOL/L (136-145) Potassium Level 3.9 MMOL/L (3.5-5.1) Chloride Level 104 MMOL/L (98-107) Carbon Dioxide Level 34 MMOL/L (21-32) H Anion Gap 1 mmol/L (5-15) L Blood Urea Nitrogen 16 mg/dL (7-18) Creatinine 0.9 MG/DL (0.55-1.30) Estimat Glomerular Filtration Rate > 60 mL/min (>60) Glucose Level 129 MG/DL (74-106) H Uric Acid 4.1 MG/DL (2.6-7.2) Calcium Level 8.1 MG/DL (8.5-10.1) L Phosphorus Level 3.6 MG/DL (2.5-4.9) Magnesium Level 1.6 MG/DL (1.8-2.4) L Iron Level 33 ug/dL (50-175) L Total Iron Binding Capacity 146 ug/dL (250-450) L Percent Iron Saturation 23 % (15-50) Unsaturated Iron Binding 113 ug/dL (112-346) Ferritin 167 NG/ML (8-388) Total Bilirubin 0.5 MG/DL (0.2-1.0) Gamma Glutamyl Transpeptidase 5 U/L (5-85) Aspartate Amino Transf (AST/SGOT) 15 U/L (15-37) Alanine Aminotransferase (ALT/SGPT) 16 U/L (12-78) Alkaline Phosphatase 62 U/L (46-116) Troponin I 0.001 ng/mL (0.000-0.056) C-Reactive Protein, Quantitative 1.5 mg/dL (0.00-0.90) H Pro-B-Type Natriuretic Peptide 152 pg/mL (0-125) H Total Protein 6.8 G/DL (6.4-8.2) Albumin 2.6 G/DL (3.4-5.0) L Globulin 4.2 g/dL Albumin/Globulin Ratio 0.6 (1.0-2.7) L Triglycerides Level 99 MG/DL (30-150) Cholesterol Level 104 MG/DL (< 200) LDL Cholesterol 50 mg/dL (<100) HDL Cholesterol 35 MG/DL (40-60) L Cholesterol/HDL Ratio 3.0 (3.3-4.4) L Vitamin B12 Level 642 PG/ML (193-986) Folate 25.2 NG/ML (8.6-58.9) Thyroid Stimulating Hormone (TSH) 0.704 uiU/mL (0.358-3.740) Vancomycin Level Trough 16.5 ug/mL (5.0-12.0) H Microbiology Date/Time Source Procedure Growth Status 07/26/19 12:00 Blood Blood Culture - Preliminary Gram Positive Cocci Resulted 07/26/19 12:27 Nasal Nares MRSA Culture - Final NO METHICILLIN RESISTANT STAPH AUREUS... Complete 07/26/19 17:30 Ankle Left Gram Stain - Final Complete 07/26/19 17:30 Wound Culture - Final Staphylococcus Sp Coag Neg Complete Dermatological Wound Assessment : Exudate Amount: None Dermatological Narrative left lateral ankle wound erythema resolving. Wound base improved but bone remains exposed. Minimal serous drainage noted. No Juan Varela DPM Jul 28, 2019 15:17
[2019-07-28 16:00] VITALS: BP 131/79
[2019-07-28] MEDS ORDERED: NS 500ML ONE (16:58)
[2019-07-28] MEDS ORDERED: Tubing IV Secondary IV ONE (16:58)
--- NOTE | 2019-07-28 17:19 | Cardiology Report ---
APPROVED REPORT EKG Measurement Heart [id number] Normal sinus rhythm Left axis deviation Minimal voltage criteria for LVH, may be normal variant Possible Lateral infarct, age undetermined Abnormal ECG
--- NOTE | 2019-07-28 17:46 | Surgery Progress Note ---
Surgery Progress Note Subjective Symptoms: improved, tolerating diet, voiding well, passing flatus, pain decreased Objective Last 24 Hour Vital Signs Date Time Temp Pulse Resp B/P (MAP) Pulse Ox O2 Delivery O2 Flow Rate FiO2 07/28/19 16:00 98.1 72 17 131/79 (96) 98 07/28/19 12:00 98.2 65 17 134/77 (96) 97 07/28/19 09:00 Room Air 07/28/19 08:44 85 137/76 07/28/19 08:44 137/76 07/28/19 08:00 98.1 85 18 137/76 (96) 100 07/28/19 04:00 97.8 89 18 133/81 (98) 100 07/28/19 00:00 97.9 72 20 144/76 (98) 97 07/27/19 20:01 Room Air 07/27/19 20:00 97.9 82 20 142/77 (98) 96 I&O Intake and Output 07/27/19 07/28/19 19:00 07:00 Intake Total 720 ml Balance 720 ml Intake Oral 720 ml # Voids 5 3 Dressing: saturated Wound: clean Cardiovascular: RSR Respiratory: clear Abdomen: soft, non-tender, present bowel sounds Extremities: no cyanosis, other Laboratory Tests Test 07/28/19 05:30 07/28/19 10:10 White Blood Count 6.9 K/UL (4.8-10.8) Red Blood Count 4.33 M/UL (4.20-5.40) Hemoglobin 12.7 G/DL (12.0-16.0) Hematocrit 37.4 % (37.0-47.0) Mean Corpuscular Volume 86 FL (80-99) Mean Corpuscular Hemoglobin 29.3 PG (27.0-31.0) Mean Corpuscular Hemoglobin Concent 33.9 G/DL (32.0-36.0) Red Cell Distribution Width 11.0 % (11.6-14.8) L Platelet Count 229 K/UL (150-450) Mean Platelet Volume 6.5 FL (6.5-10.1) Neutrophils (%) (Auto) 59.7 % (45.0-75.0) Lymphocytes (%) (Auto) 29.0 % (20.0-45.0) Monocytes (%) (Auto) 5.1 % (1.0-10.0) Eosinophils (%) (Auto) 5.3 % (0.0-3.0) H Basophils (%) (Auto) 0.9 % (0.0-2.0) Sodium Level 139 MMOL/L (136-145) Potassium Level 3.9 MMOL/L (3.5-5.1) Chloride Level 104 MMOL/L (98-107) Carbon Dioxide Level 34 MMOL/L (21-32) H Anion Gap 1 mmol/L (5-15) L Blood Urea Nitrogen 16 mg/dL (7-18) Creatinine 0.9 MG/DL (0.55-1.30) Estimat Glomerular Filtration Rate > 60 mL/min (>60) Glucose Level 129 MG/DL (74-106) H Uric Acid 4.1 MG/DL (2.6-7.2) Calcium Level 8.1 MG/DL (8.5-10.1) L Phosphorus Level 3.6 MG/DL (2.5-4.9) Magnesium Level 1.6 MG/DL (1.8-2.4) L Iron Level 33 ug/dL (50-175) L Total Iron Binding Capacity 146 ug/dL (250-450) L Percent Iron Saturation 23 % (15-50) Unsaturated Iron Binding 113 ug/dL (112-346) Ferritin 167 NG/ML (8-388) Total Bilirubin 0.5 MG/DL (0.2-1.0) Gamma Glutamyl Transpeptidase 5 U/L (5-85) Aspartate Amino Transf (AST/SGOT) 15 U/L (15-37) Alanine Aminotransferase (ALT/SGPT) 16 U/L (12-78) Alkaline Phosphatase 62 U/L (46-116) Troponin I 0.001 ng/mL (0.000-0.056) C-Reactive Protein, Quantitative 1.5 mg/dL (0.00-0.90) H Pro-B-Type Natriuretic Peptide 152 pg/mL (0-125) H Total Protein 6.8 G/DL (6.4-8.2) Albumin 2.6 G/DL (3.4-5.0) L Globulin 4.2 g/dL Albumin/Globulin Ratio 0.6 (1.0-2.7) L Triglycerides Level 99 MG/DL (30-150) Cholesterol Level 104 MG/DL (< 200) LDL Cholesterol 50 mg/dL (<100) HDL Cholesterol 35 MG/DL (40-60) L Cholesterol/HDL Ratio 3.0 (3.3-4.4) L Vitamin B12 Level 642 PG/ML (193-986) Folate 25.2 NG/ML (8.6-58.9) Thyroid Stimulating Hormone (TSH) 0.704 uiU/mL (0.358-3.740) Vancomycin Level Trough 16.5 ug/mL (5.0-12.0) H Plan Problems: (1) Cellulitis Assessment & Plan: 64-year-old female with potentially infected left lateral ankle stage IV ulcer. Wound evaluated bedside and noted to be stage IV with palpable bone on the lateral aspect of the left ankle. Mild serous drainage but no purulent drainage. Periwound cellulitis and skin macerated. Pulses diminished distally. Tender. Motor neurosensory intact with sensory bearing somewhat diminished Positive for osteomyelitis of the distal fibula, due to the area of ulceration. Small ankle joint effusion Edema of the subcutaneous fat in the region of the marked ulcer, likely cellulitis. There is also edema of the deep plantar compartment which could indicate cellulitis/myositis. No acute surgical intervention, needs abx and local wound care for now Local wound care. Podiatry consultation appreciated discussed with podiatry. plan for local wound care and abx. d/c to snf with cont f/u Keep leg elevated when in bed Heel protectors elevate heel from pressure with pillows Turn every 2 hours Offload pressure as patient is at risk for developing decubiti Antibiotic as per ID Thank you will follow with recommendations (2) Wound infection Paddy Stephens Jul 28, 2019 17:46
[2019-07-28 20:00] VITALS: BP 137/79
--- NOTE | 2019-07-28 21:03 | General Progress Note ---
Assessment/Plan Problem List: (1) Diabetic nephropathy ICD Codes: E11.21 - Type 2 diabetes mellitus with diabetic nephropathy SNOMED: 722859873 (2) Electrolyte imbalance ICD Codes: E87.8 - Other disorders of electrolyte and fluid balance, not elsewhere classified SNOMED: 178119044 (3) HTN (hypertension) ICD Codes: I10 - Essential (primary) hypertension SNOMED: 85425045 (4) Diabetes mellitus ICD Codes: E11.9 - Type 2 diabetes mellitus without complications SNOMED: 06643462 (5) Wound infection ICD Codes: T14.8XXA - Other injury of unspecified body region, initial encounter; L08.9 - Local infection of the skin and subcutaneous tissue, unspecified SNOMED: 61468183 (6) Cellulitis ICD Codes: L03.90 - Cellulitis, unspecified SNOMED: 887675322 Status: progressing Assessment/Plan: afebrile niddm diabetic foot infection abx per id i &d per surgeon check sugars no significant pain Subjective ROS Limited/Unobtainable: Yes Allergies: Coded Allergies: No Known Allergies (Unverified , 07/26/19) Objective Last 24 Hour Vital Signs Date Time Temp Pulse Resp B/P (MAP) Pulse Ox O2 Delivery O2 Flow Rate FiO2 07/28/19 16:00 98.1 72 17 131/79 (96) 98 07/28/19 12:00 98.2 65 17 134/77 (96) 97 07/28/19 09:00 Room Air 07/28/19 08:44 85 137/76 07/28/19 08:44 137/76 07/28/19 08:00 98.1 85 18 137/76 (96) 100 07/28/19 04:00 97.8 89 18 133/81 (98) 100 07/28/19 00:00 97.9 72 20 144/76 (98) 97 Intake and Output 07/27/19 07/28/19 19:00 07:00 Intake Total 720 ml Balance 720 ml Intake Oral 720 ml # Voids 5 3 Laboratory Tests 07/28/19 05:30: White Blood Count 6.9, Red Blood Count 4.33, Hemoglobin 12.7, Hematocrit 37.4, Mean Corpuscular Volume 86, Mean Corpuscular Hemoglobin 29.3, Mean Corpuscular Hemoglobin Concent 33.9, Red Cell Distribution Width 11.0L, Platelet Count 229, Mean Platelet Volume 6.5, Neutrophils (%) (Auto) 59.7, Lymphocytes (%) (Auto) 29.0, Monocytes (%) (Auto) 5.1, Eosinophils (%) (Auto) 5.3H, Basophils (%) (Auto ) 0.9, Sodium Level 139, Potassium Level 3.9, Chloride Level 104, Carbon Dioxide Level 34H, Anion Gap 1L, Blood Urea Nitrogen 16, Creatinine 0.9, Estimat Glomerular Filtration Rate > 60, Glucose Level 129H, Uric Acid 4.1, Calcium Level 8.1L, Phosphorus Level 3.6, Magnesium Level 1.6L, Iron Level 33L, Total Iron Binding Capacity 146L, Percent Iron Saturation 23, Unsaturated Iron Binding 113, Ferritin 167, Total Bilirubin 0.5, Gamma Glutamyl Transpeptidase 5 , Aspartate Amino Transf (AST/SGOT) 15, Alanine Aminotransferase (ALT/SGPT) 16, Alkaline Phosphatase 62, Troponin I 0.001, C-Reactive Protein, Quantitative 1.5H , Pro-B-Type Natriuretic Peptide 152H, Total Protein 6.8, Albumin 2.6L, Globulin 4.2, Albumin/Globulin Ratio 0.6L, Triglycerides Level 99, Cholesterol Level 104, LDL Cholesterol 50, HDL Cholesterol 35L, Cholesterol/HDL Ratio 3.0L, Vitamin B12 Level 642, Folate 25.2, Thyroid Stimulating Hormone (TSH) 0.704 07/28/19 10:10: Vancomycin Level Trough 16.5H Height (Feet): 5 Height (Inches): 4.00 Weight (Pounds): 161 Neck: normal alignment Cardiovascular: normal rate Respiratory/Chest: chest wall non-tender Silvano Aguilera MD Jul 28, 2019 21:03
[2019-07-28] MEDS: Donepezil 10mg tab ORAL SCH (21:05)
[2019-07-28] MEDS: Atorvastatin 20mg tab ORAL SCH (21:05)
[2019-07-28] MEDS: Vancomycin 750 MG in NS 275 ML IVPB SCH (23:47)
[2019-07-29] VITALS: BP 137/77
[2019-07-29 04:00] VITALS: BP 139/73
[2019-07-29] MEDS: NS w/KCl 40mEq 1,000 ML IV SCH (04:56)
--- NOTE | 2019-07-29 05:15 | Consultation ---
DATE OF CONSULTATION: CONSULTING PHYSICIAN: Tito Moreno M.D. HISTORY OF PRESENT ILLNESS: A 64-year-old female with a history of depression, anxiety, hypertension, GERD, diabetes mellitus, and hyperlipidemia, who has been admitted to the hospital for left ankle wound. The patient was found lethargic the day before yesterday. The patient takes Lexapro and Seroquel outside of the hospital. During the evaluation, the patient was calm, withdrawn, depressed, and disoriented. PAST PSYCHIATRIC HISTORY: Depression and anxiety. PAST MEDICAL HISTORY: As above. ALLERGIES: No known drug allergies. SUBSTANCE ABUSE HISTORY: No known history of illicit drug use or alcohol. SOCIAL HISTORY: The patient in an assisted living. The patient was more coherent, however, still disoriented to date. Mood is dysphoric. Affect is flat. Thought process, there is a paucity of thought content. Thought content, no suicidal or homicidal ideation. Cognition is impaired. Insight and judgment are impaired. ASSESSMENT: AXIS I: Acute encephalopathy. Major depressive disorder. AXIS II: Deferred. AXIS III: As above. AXIS IV: Low. AXIS V: 20. PLAN: 1. The patient's Lexapro was discontinued. 2. We will continue with the Seroquel. 3. We [facility] with [facility]. Tito Moreno M.D. DR: JESSICA JOB#: [id number] CC:
[2019-07-29] MEDS: NovoLOG Insulin Flexpen SUBQ SCH ×4 (06:30→21:00)
[2019-07-29 08:00] VITALS: BP 147/73
[2019-07-29] MEDS: Lisinopril 10mg tab ORAL SCH (09:00)
[2019-07-29] MEDS: Docusate 100mg cap ORAL SCH ×3 (09:00→17:49)
[2019-07-29] MEDS ORDERED: Cefepime HCl 1 GM in NS 55 ML IVPB SCH (09:00)
[2019-07-29] MEDS: Levemir Flexpen SUBQ SCH (09:03)
[2019-07-29] MEDS: Vancomycin 750 MG in NS 275 ML IVPB SCH ×2 (10:28→23:14)
[2019-07-29 12:00] VITALS: BP 158/75
--- NOTE | 2019-07-29 13:15 | Nephrology Progress Note ---
Assessment/Plan Problem List: (1) Diabetic nephropathy (2) Electrolyte imbalance Assessment: Low K (3) HTN (hypertension) (4) Diabetes mellitus Assessment Proteinuria HypoKalemia Cellulitis infected left lateral ankle stage IV ulcer. Wound infection DM / Proteinuria / Nephropathy HTN Plan no labs today Slow Hydrate K Supplement wound care / Antibiotics BS and BP in check Subjective ROS Limited/Unobtainable: No Constitutional: Reports: malaise Objective Objective Last 24 Hour Vital Signs Date Time Temp Pulse Resp B/P (MAP) Pulse Ox O2 Delivery O2 Flow Rate FiO2 07/29/19 12:00 97.9 70 18 158/75 (102) 95 07/29/19 09:00 Room Air 07/29/19 09:00 66 147/73 07/29/19 09:00 147/73 07/29/19 08:00 96.0 66 17 147/73 (97) 97 07/29/19 04:00 97.0 63 18 139/73 (95) 97 07/29/19 00:00 97.3 70 18 137/77 (97) 96 07/28/19 21:00 Room Air 07/28/19 20:00 97.5 78 18 137/79 (98) 97 07/28/19 16:00 98.1 72 17 131/79 (96) 98 Intake and Output 07/28/19 07/29/19 19:00 07:00 Intake Total 950 ml 2126.666 ml Balance 950 ml 2126.666 ml Intake Oral 360 ml IV Total 50 ml 866.666 ml Other 900 ml 900 ml # Voids 3 # Bowel Movements 1 Height (Feet): 5 Height (Inches): 4.00 Weight (Pounds): 161 General Appearance: no apparent distress Objective no change Abraham Marroquin MD Jul 29, 2019 13:15
--- NOTE | 2019-07-29 15:27 | Surgery Progress Note ---
Surgery Progress Note Subjective Symptoms: improved, tolerating diet, passing flatus, pain decreased Objective Last 24 Hour Vital Signs Date Time Temp Pulse Resp B/P (MAP) Pulse Ox O2 Delivery O2 Flow Rate FiO2 07/29/19 12:00 97.9 70 18 158/75 (102) 95 07/29/19 09:00 Room Air 07/29/19 09:00 66 147/73 07/29/19 09:00 147/73 07/29/19 08:00 96.0 66 17 147/73 (97) 97 07/29/19 04:00 97.0 63 18 139/73 (95) 97 07/29/19 00:00 97.3 70 18 137/77 (97) 96 07/28/19 21:00 Room Air 07/28/19 20:00 97.5 78 18 137/79 (98) 97 07/28/19 16:00 98.1 72 17 131/79 (96) 98 I&O Intake and Output 07/28/19 07/29/19 19:00 07:00 Intake Total 950 ml 2126.666 ml Balance 950 ml 2126.666 ml Intake Oral 360 ml IV Total 50 ml 866.666 ml Other 900 ml 900 ml # Voids 3 # Bowel Movements 1 Dressing: dry Wound: clean Cardiovascular: RSR Respiratory: clear Abdomen: soft, flat, non-tender, present bowel sounds Extremities: edema, no tenderness, other Plan Problems: (1) Cellulitis Assessment & Plan: 64-year-old female with potentially infected left lateral ankle stage IV ulcer. Wound evaluated bedside and noted to be stage IV with palpable bone on the lateral aspect of the left ankle. Mild serous drainage but no purulent drainage. Periwound cellulitis and skin macerated. Pulses diminished distally. Tender. Motor neurosensory intact with sensory bearing somewhat diminished Positive for osteomyelitis of the distal fibula, due to the area of ulceration. Small ankle joint effusion Edema of the subcutaneous fat in the region of the marked ulcer, likely cellulitis. There is also edema of the deep plantar compartment which could indicate cellulitis/myositis. No acute surgical intervention, needs abx and local wound care for now Local wound care. Podiatry consultation appreciated discussed with podiatry. plan for local wound care and abx. d/c to snf with cont f/u Keep leg elevated when in bed Heel protectors elevate heel from pressure with pillows Turn every 2 hours Offload pressure as patient is at risk for developing decubiti Antibiotic as per ID; appreciate input and recs Thank you will follow with recommendations (2) Wound infection Paddy Stephens Jul 29, 2019 15:27
[2019-07-29 16:00] VITALS: BP 133/65
--- NOTE | 2019-07-29 17:12 | Infectious Diseases Prog Note ---
Assessment/Plan Assessment/Plan IMPRESSION: 1. Cellulitis, wound infection in the left foot, lateral ankle. 2. The patient has pressure ulcer. 3. Alzheimer's dementia. 4. Diabetes mellitus. 5. Hypertension. 6. Psychosis. 7. Osteomyelitis of distal fibula 8. Positive culture with Staph Waneri, contamination RECOMMENDATION: Continue IV vancomycin Discontinue cefepime. We will follow up the cultures PICC line placement for long-term antibiotic Subjective ROS Limited/Unobtainable: Yes Constitutional: Denies: fever Musculoskeletal: Denies: pain Allergies: Coded Allergies: No Known Allergies (Unverified , 07/26/19) Objective Vital Signs Last 24 Hour Vital Signs Date Time Temp Pulse Resp B/P (MAP) Pulse Ox O2 Delivery O2 Flow Rate FiO2 07/29/19 16:00 98.4 95 20 133/65 (87) 95 07/29/19 12:00 97.9 70 18 158/75 (102) 95 07/29/19 09:00 Room Air 07/29/19 09:00 66 147/73 07/29/19 09:00 147/73 07/29/19 08:00 96.0 66 17 147/73 (97) 97 07/29/19 04:00 97.0 63 18 139/73 (95) 97 07/29/19 00:00 97.3 70 18 137/77 (97) 96 07/28/19 21:00 Room Air 07/28/19 20:00 97.5 78 18 137/79 (98) 97 Height (Feet): 5 Height (Inches): 4.00 Weight (Pounds): 161 General Appearance: no acute distress HEENT: mucous membranes moist Respiratory/Chest: lungs clear Cardiovascular: normal rate Abdomen: soft, non tender Extremities: no edema Skin: ulcers, other - left foot Neurologic/Psychiatric: alert, responsive Microbiology Date/Time Source Procedure Growth Status 07/26/19 17:30 Ankle Left Gram Stain - Final Complete 07/26/19 17:30 Wound Culture - Final Staphylococcus Sp Coag Neg Complete Current Medications Medications (Trade) Dose Ordered Sig/Reagan Route PRN Reason Start Time Stop Time Status Last Admin Dose Admin Acetaminophen (Tylenol) 650 mg Q4H PRN ORAL Mild Pain/Temp > 100.5 07/26/19 15:30 08/25/19 15:29 Amlodipine Besylate (Norvasc) 10 mg DAILY ORAL 07/28/19 09:00 08/26/19 08:59 07/29/19 09:00 Atorvastatin Calcium (Lipitor) 40 mg BEDTIME ORAL 07/26/19 21:00 08/25/19 20:59 07/28/19 21:05 Cefepime HCl 1 gm/ Sodium Chloride 55 ml @ 110 mls/hr Q24H IVPB 07/29/19 09:00 08/03/19 08:59 07/29/19 09:01 Dextrose (Dextrose 50%) 25 ml Q30M PRN IV Hypoglycemia 07/26/19 15:30 08/25/19 15:29 Dextrose (Dextrose 50%) 50 ml Q30M PRN IV Hypoglycemia 07/26/19 15:30 08/25/19 15:29 Docusate Sodium (Colace) 100 mg THREE TIMES A DAY ORAL 07/27/19 13:00 08/26/19 12:59 07/29/19 12:03 Donepezil HCl (Aricept) 10 mg QHS ORAL 07/26/19 21:00 08/25/19 20:59 07/28/19 21:05 Insulin Aspart (NovoLOG) BEFORE MEALS AND HS SUBQ 07/26/19 16:30 08/25/19 16:29 07/29/19 12:03 Insulin Detemir (Levemir) 30 units DAILY SUBQ 07/27/19 09:00 08/26/19 08:59 07/29/19 09:03 Lisinopril (ZestriL) 10 mg DAILY ORAL 07/28/19 09:00 08/26/19 08:59 07/29/19 09:00 Pantoprazole (Protonix) 40 mg DAILY ORAL 07/27/19 09:00 08/26/19 08:59 07/29/19 09:00 Potassium Chloride/Sodium Chloride 1,000 ml @ 50 mls/hr Q20H IV 07/27/19 12:00 08/26/19 11:59 07/29/19 04:56 Quetiapine Fumarate (SEROqueL) 25 mg QHS ORAL 07/26/19 21:00 08/25/19 20:59 07/28/19 21:05 Vancomycin HCl (Vanco rx to dose) 1 ea DAILY PRN MISC Per rx protocol 07/26/19 19:15 08/25/19 19:14 Vancomycin HCl 750 mg/Sodium Chloride 275 ml @ 183.333 mls/hr Q12HR@1100,2300 IVPB 07/28/19 23:00 07/31/19 23:59 07/29/19 10:28 Amador Verduzco MD Jul 29, 2019 17:12
[2019-07-29] MEDS ORDERED: Lidocaine 1% Plain 30 ml INJ PRN (17:15)
[2019-07-29] MEDS ORDERED: Heparin1,000 units/500ml Premix(Conc:2 units/ml) IV PRN (17:15)
[2019-07-29 20:00] VITALS: BP 130/68
--- NOTE | 2019-07-29 21:20 | General Progress Note ---
Assessment/Plan Problem List: (1) Diabetic nephropathy ICD Codes: E11.21 - Type 2 diabetes mellitus with diabetic nephropathy SNOMED: 343926632 (2) Electrolyte imbalance ICD Codes: E87.8 - Other disorders of electrolyte and fluid balance, not elsewhere classified SNOMED: 286311691 (3) HTN (hypertension) ICD Codes: I10 - Essential (primary) hypertension SNOMED: 52742104 (4) Diabetes mellitus ICD Codes: E11.9 - Type 2 diabetes mellitus without complications SNOMED: 39530705 (5) Wound infection ICD Codes: T14.8XXA - Other injury of unspecified body region, initial encounter; L08.9 - Local infection of the skin and subcutaneous tissue, unspecified SNOMED: 85164923 (6) Cellulitis ICD Codes: L03.90 - Cellulitis, unspecified SNOMED: 308063893 Status: progressing Assessment/Plan: afebrile niddm diabetic foot infection cellulitis of feet abx per id check sugar obesity Subjective ROS Limited/Unobtainable: Yes Allergies: Coded Allergies: No Known Allergies (Unverified , 07/26/19) Objective Last 24 Hour Vital Signs Date Time Temp Pulse Resp B/P (MAP) Pulse Ox O2 Delivery O2 Flow Rate FiO2 07/29/19 16:00 98.4 95 20 133/65 (87) 95 07/29/19 12:00 97.9 70 18 158/75 (102) 95 07/29/19 09:00 Room Air 07/29/19 09:00 66 147/73 07/29/19 09:00 147/73 07/29/19 08:00 96.0 66 17 147/73 (97) 97 07/29/19 04:00 97.0 63 18 139/73 (95) 97 07/29/19 00:00 97.3 70 18 137/77 (97) 96 Intake and Output 07/28/19 07/29/19 19:00 07:00 Intake Total 950 ml 2126.666 ml Balance 950 ml 2126.666 ml Intake Oral 360 ml IV Total 50 ml 866.666 ml Other 900 ml 900 ml # Voids 3 # Bowel Movements 1 Height (Feet): 5 Height (Inches): 4.00 Weight (Pounds): 161 Cardiovascular: normal rate Respiratory/Chest: lungs clear Abdomen: soft Silvano Aguilera MD Jul 29, 2019 21:20
[2019-07-29] MEDS: Atorvastatin 20mg tab ORAL SCH (21:24)
[2019-07-29] MEDS: Donepezil 10mg tab ORAL SCH (21:24)
[2019-07-29] MEDS: Dyna-Hex 2% Top Sol 2oz TOPIC SCH (21:25)
[2019-07-30] VITALS: BP 154/72
[2019-07-30 04:00] VITALS: BP 151/79
[2019-07-30] MEDS: NS w/KCl 40mEq 1,000 ML IV SCH ×2 (04:00→23:00)
[2019-07-30] MEDS: NovoLOG Insulin Flexpen SUBQ SCH ×4 (06:05→21:00)
[2019-07-30 07:32] LABS: BASOPHILS % (AUTO) 0.4 % (0.0-2.0); EOSINOPHILS % (AUTO) 6.5 % (0.0-3.0); HEMATOCRIT 37.2 % (37.0-47.0); HEMOGLOBIN 12.8 G/DL (12.0-16.0); LYMPHOCYTES % (AUTO) 23.9 % (20.0-45.0); MEAN CORPUSCULAR VOLUME 85 FL (80-99); MONOCYTES % (AUTO) 5.3 % (1.0-10.0); NEUTROPHILS % (AUTO) 63.9 % (45.0-75.0); PLATELET COUNT 242 K/UL (150-450); RED BLOOD COUNT 4.36 M/UL (4.20-5.40); RED CELL DISTRIBUTION WIDTH 11.2 % (11.6-14.8); WHITE BLOOD COUNT 6.4 K/UL (4.8-10.8)
[2019-07-30 08:00] VITALS: BP 144/80
[2019-07-30 08:03] LABS: ALANINE AMINOTRANSFERASE 18 U/L (12-78); ALBUMIN 2.9 G/DL (3.4-5.0); ALBUMIN/GLOBULIN RATIO 0.7 (1.0-2.7); ALKALINE PHOSPHATASE 70 U/L (46-116); ANION GAP 8 mmol/L (5-15); ASPARTATE AMINO TRANSFERASE 14 U/L (15-37); BILIRUBIN,TOTAL 0.5 MG/DL (0.2-1.0); BLOOD UREA NITROGEN 11 mg/dL (7-18); CALCIUM 8.7 MG/DL (8.5-10.1); CARBON DIOXIDE 31 MMOL/L (21-32); CHLORIDE 104 MMOL/L (98-107); CREATININE 0.8 MG/DL (0.55-1.30); PHOSPHORUS 2.7 MG/DL (2.5-4.9); POTASSIUM 3.6 MMOL/L (3.5-5.1); SODIUM 143 MMOL/L (136-145)
[2019-07-30] MEDS: Lisinopril 10mg tab ORAL SCH (08:56)
[2019-07-30] MEDS: Docusate 100mg cap ORAL SCH ×3 (08:57→17:10)
[2019-07-30] MEDS: Levemir Flexpen SUBQ SCH (08:58)
[2019-07-30] MEDS: Vancomycin 750 MG in NS 275 ML IVPB SCH ×2 (10:42→23:12)
[2019-07-30 12:00] VITALS: BP 159/82
--- NOTE | 2019-07-30 12:52 | Surgery Progress Note ---
Surgery Progress Note Subjective Additional Comments no acute events comfortable no complaints labs noted exam stable Objective Last 24 Hour Vital Signs Date Time Temp Pulse Resp B/P (MAP) Pulse Ox O2 Delivery O2 Flow Rate FiO2 07/30/19 12:00 98.2 82 18 159/82 (107) 98 07/30/19 09:00 Room Air 07/30/19 08:56 70 144/80 07/30/19 08:56 144/80 07/30/19 08:00 97.0 70 18 144/80 (101) 96 07/30/19 04:00 97.1 72 19 151/79 (103) 95 07/30/19 00:00 97.6 63 20 154/72 (99) 97 07/29/19 21:00 Room Air 07/29/19 20:00 97.7 72 20 130/68 (88) 100 07/29/19 16:00 98.4 95 20 133/65 (87) 95 I&O Intake and Output 07/29/19 07/30/19 19:00 07:00 Intake Total 1766.666 ml 550 ml Output Total 1000 ml 900 ml Balance 766.666 ml -350 ml Intake Oral 840 ml IV Total 926.666 ml 550 ml Output Urine Total 1000 ml 900 ml # Voids 2 # Bowel Movements 1 Dressing: dry Wound: clean Cardiovascular: RSR Respiratory: clear Abdomen: soft, flat, non-tender, present bowel sounds, non-distended Extremities: edema, no tenderness, no cyanosis Laboratory Tests Test 07/30/19 06:30 White Blood Count 6.4 K/UL (4.8-10.8) Red Blood Count 4.36 M/UL (4.20-5.40) Hemoglobin 12.8 G/DL (12.0-16.0) Hematocrit 37.2 % (37.0-47.0) Mean Corpuscular Volume 85 FL (80-99) Mean Corpuscular Hemoglobin 29.3 PG (27.0-31.0) Mean Corpuscular Hemoglobin Concent 34.5 G/DL (32.0-36.0) Red Cell Distribution Width 11.2 % (11.6-14.8) L Platelet Count 242 K/UL (150-450) Mean Platelet Volume 6.7 FL (6.5-10.1) Neutrophils (%) (Auto) 63.9 % (45.0-75.0) Lymphocytes (%) (Auto) 23.9 % (20.0-45.0) Monocytes (%) (Auto) 5.3 % (1.0-10.0) Eosinophils (%) (Auto) 6.5 % (0.0-3.0) H Basophils (%) (Auto) 0.4 % (0.0-2.0) Sodium Level 143 MMOL/L (136-145) Potassium Level 3.6 MMOL/L (3.5-5.1) Chloride Level 104 MMOL/L (98-107) Carbon Dioxide Level 31 MMOL/L (21-32) Anion Gap 8 mmol/L (5-15) Blood Urea Nitrogen 11 mg/dL (7-18) Creatinine 0.8 MG/DL (0.55-1.30) Estimat Glomerular Filtration Rate > 60 mL/min (>60) Glucose Level 133 MG/DL (74-106) H Uric Acid 2.9 MG/DL (2.6-7.2) Calcium Level 8.7 MG/DL (8.5-10.1) Phosphorus Level 2.7 MG/DL (2.5-4.9) Magnesium Level 1.6 MG/DL (1.8-2.4) L Total Bilirubin 0.5 MG/DL (0.2-1.0) Aspartate Amino Transf (AST/SGOT) 14 U/L (15-37) L Alanine Aminotransferase (ALT/SGPT) 18 U/L (12-78) Alkaline Phosphatase 70 U/L (46-116) C-Reactive Protein, Quantitative 0.8 mg/dL (0.00-0.90) Pro-B-Type Natriuretic Peptide 243 pg/mL (0-125) H Total Protein 7.3 G/DL (6.4-8.2) Albumin 2.9 G/DL (3.4-5.0) L Globulin 4.4 g/dL Albumin/Globulin Ratio 0.7 (1.0-2.7) L Plan Problems: (1) Cellulitis Assessment & Plan: 64-year-old female with potentially infected left lateral ankle stage IV ulcer. Wound evaluated bedside and noted to be stage IV with palpable bone on the lateral aspect of the left ankle. Mild serous drainage but no purulent drainage. Periwound cellulitis and skin macerated. Pulses diminished distally. Tender. Motor neurosensory intact with sensory bearing somewhat diminished Positive for osteomyelitis of the distal fibula, due to the area of ulceration. Small ankle joint effusion Edema of the subcutaneous fat in the region of the marked ulcer, likely cellulitis. There is also edema of the deep plantar compartment which could indicate cellulitis/myositis. No acute surgical intervention, needs abx and local wound care for now Local wound care. Podiatry consultation appreciated discussed with podiatry. plan for local wound care and abx. d/c to snf with cont f/u Keep leg elevated when in bed Heel protectors elevate heel from pressure with pillows Turn every 2 hours Offload pressure as patient is at risk for developing decubiti Antibiotic as per ID; appreciate input and recs labs improved d/c planning Thank you will follow with recommendations (2) Wound infection Paddy Stephens Jul 30, 2019 12:52
--- NOTE | 2019-07-30 15:06 | Nephrology Progress Note ---
Assessment/Plan Problem List: (1) Diabetic nephropathy (2) Electrolyte imbalance Assessment: Low K (3) HTN (hypertension) (4) Diabetes mellitus Assessment Proteinuria HypoKalemia Cellulitis infected left lateral ankle stage IV ulcer. Wound infection DM / Proteinuria / Nephropathy HTN Plan Slow Hydrate K and mag Supplement as needed wound care / Antibiotics BS and BP in check Subjective ROS Limited/Unobtainable: No Constitutional: Reports: malaise Objective Objective Last 24 Hour Vital Signs Date Time Temp Pulse Resp B/P (MAP) Pulse Ox O2 Delivery O2 Flow Rate FiO2 07/30/19 12:00 98.2 82 18 159/82 (107) 98 07/30/19 09:00 Room Air 07/30/19 08:56 70 144/80 07/30/19 08:56 144/80 07/30/19 08:00 97.0 70 18 144/80 (101) 96 07/30/19 04:00 97.1 72 19 151/79 (103) 95 07/30/19 00:00 97.6 63 20 154/72 (99) 97 07/29/19 21:00 Room Air 07/29/19 20:00 97.7 72 20 130/68 (88) 100 07/29/19 16:00 98.4 95 20 133/65 (87) 95 Intake and Output 07/29/19 07/30/19 19:00 07:00 Intake Total 1766.666 ml 550 ml Output Total 1000 ml 900 ml Balance 766.666 ml -350 ml Intake Oral 840 ml IV Total 926.666 ml 550 ml Output Urine Total 1000 ml 900 ml # Voids 2 # Bowel Movements 1 Laboratory Tests 07/30/19 06:30: White Blood Count 6.4, Red Blood Count 4.36, Hemoglobin 12.8, Hematocrit 37.2, Mean Corpuscular Volume 85, Mean Corpuscular Hemoglobin 29.3, Mean Corpuscular Hemoglobin Concent 34.5, Red Cell Distribution Width 11.2L, Platelet Count 242, Mean Platelet Volume 6.7, Neutrophils (%) (Auto) 63.9, Lymphocytes (%) (Auto) 23.9, Monocytes (%) (Auto) 5.3, Eosinophils (%) (Auto) 6.5H, Basophils (%) (Auto ) 0.4, Sodium Level 143, Potassium Level 3.6, Chloride Level 104, Carbon Dioxide Level 31, Anion Gap 8, Blood Urea Nitrogen 11, Creatinine 0.8, Estimat Glomerular Filtration Rate > 60, Glucose Level 133H, Uric Acid 2.9, Calcium Level 8.7, Phosphorus Level 2.7, Magnesium Level 1.6L, Total Bilirubin 0.5, Aspartate Amino Transf (AST/SGOT) 14L, Alanine Aminotransferase (ALT/SGPT) 18, Alkaline Phosphatase 70, C-Reactive Protein, Quantitative 0.8, Pro-B-Type Natriuretic Peptide 243H, Total Protein 7.3, Albumin 2.9L, Globulin 4.4, Albumin /Globulin Ratio 0.7L Height (Feet): 5 Height (Inches): 4.00 Weight (Pounds): 161 General Appearance: no apparent distress Cardiovascular: regular rhythm Respiratory/Chest: decreased breath sounds Abdomen: soft Objective no change Abraham Marroquin MD Jul 30, 2019 15:06
[2019-07-30 16:00] VITALS: BP 144/80
[2019-07-30 20:00] VITALS: BP 148/77
[2019-07-30] MEDS: Dyna-Hex 2% Top Sol 2oz TOPIC SCH (20:00)
[2019-07-30] MEDS: Donepezil 10mg tab ORAL SCH (21:10)
[2019-07-30] MEDS: Atorvastatin 20mg tab ORAL SCH (21:11)
--- NOTE | 2019-07-30 22:51 | General Progress Note ---
Assessment/Plan Problem List: (1) Diabetic nephropathy ICD Codes: E11.21 - Type 2 diabetes mellitus with diabetic nephropathy SNOMED: 220745715 (2) Electrolyte imbalance ICD Codes: E87.8 - Other disorders of electrolyte and fluid balance, not elsewhere classified SNOMED: 563236899 (3) HTN (hypertension) ICD Codes: I10 - Essential (primary) hypertension SNOMED: 61368357 (4) Diabetes mellitus ICD Codes: E11.9 - Type 2 diabetes mellitus without complications SNOMED: 04855985 (5) Wound infection ICD Codes: T14.8XXA - Other injury of unspecified body region, initial encounter; L08.9 - Local infection of the skin and subcutaneous tissue, unspecified SNOMED: 65010305 (6) Cellulitis ICD Codes: L03.90 - Cellulitis, unspecified SNOMED: 228151483 Status: progressing Assessment/Plan: wound care refer to facility for wound care niddm diabetic foot infection cellulitis of feet abx per id obesity Subjective ROS Limited/Unobtainable: Yes Allergies: Coded Allergies: No Known Allergies (Unverified , 07/26/19) Objective Last 24 Hour Vital Signs Date Time Temp Pulse Resp B/P (MAP) Pulse Ox O2 Delivery O2 Flow Rate FiO2 07/30/19 21:00 Room Air 07/30/19 20:00 98.4 70 18 148/77 (100) 96 07/30/19 16:00 98.4 86 18 144/80 (101) 97 07/30/19 12:00 98.2 82 18 159/82 (107) 98 07/30/19 09:00 Room Air 07/30/19 08:56 70 144/80 07/30/19 08:56 144/80 07/30/19 08:00 97.0 70 18 144/80 (101) 96 07/30/19 04:00 97.1 72 19 151/79 (103) 95 07/30/19 00:00 97.6 63 20 154/72 (99) 97 Intake and Output 07/29/19 07/30/19 19:00 07:00 Intake Total 1766.666 ml 550 ml Output Total 1000 ml 900 ml Balance 766.666 ml -350 ml Intake Oral 840 ml IV Total 926.666 ml 550 ml Output Urine Total 1000 ml 900 ml # Voids 2 # Bowel Movements 1 Laboratory Tests 07/30/19 06:30: White Blood Count 6.4, Red Blood Count 4.36, Hemoglobin 12.8, Hematocrit 37.2, Mean Corpuscular Volume 85, Mean Corpuscular Hemoglobin 29.3, Mean Corpuscular Hemoglobin Concent 34.5, Red Cell Distribution Width 11.2L, Platelet Count 242, Mean Platelet Volume 6.7, Neutrophils (%) (Auto) 63.9, Lymphocytes (%) (Auto) 23.9, Monocytes (%) (Auto) 5.3, Eosinophils (%) (Auto) 6.5H, Basophils (%) (Auto ) 0.4, Sodium Level 143, Potassium Level 3.6, Chloride Level 104, Carbon Dioxide Level 31, Anion Gap 8, Blood Urea Nitrogen 11, Creatinine 0.8, Estimat Glomerular Filtration Rate > 60, Glucose Level 133H, Uric Acid 2.9, Calcium Level 8.7, Phosphorus Level 2.7, Magnesium Level 1.6L, Total Bilirubin 0.5, Aspartate Amino Transf (AST/SGOT) 14L, Alanine Aminotransferase (ALT/SGPT) 18, Alkaline Phosphatase 70, C-Reactive Protein, Quantitative 0.8, Pro-B-Type Natriuretic Peptide 243H, Total Protein 7.3, Albumin 2.9L, Globulin 4.4, Albumin /Globulin Ratio 0.7L Height (Feet): 5 Height (Inches): 4.00 Weight (Pounds): 161 Neck: supple Cardiovascular: normal rate Respiratory/Chest: lungs clear Silvano Aguilera MD Jul 30, 2019 22:51
[2019-07-31] VITALS: BP 150/56
[2019-07-31 04:00] VITALS: BP 147/75
[2019-07-31] MEDS: NovoLOG Insulin Flexpen SUBQ SCH ×4 (05:40→20:25)
[2019-07-31 08:00] VITALS: BP 149/78
[2019-07-31] MEDS: Docusate 100mg cap ORAL SCH ×3 (08:07→17:42)
[2019-07-31] MEDS: Lisinopril 10mg tab ORAL SCH (08:08)
[2019-07-31] MEDS: Levemir Flexpen SUBQ SCH (08:09)
[2019-07-31] MEDS: Vancomycin 750 MG in NS 275 ML IVPB SCH ×2 (10:31→23:59)
[2019-07-31 12:00] VITALS: BP 150/75
--- NOTE | 2019-07-31 12:25 | Surgery Progress Note ---
Surgery Progress Note Subjective Symptoms: improved, tolerating diet, voiding well, passing flatus, pain decreased Objective Last 24 Hour Vital Signs Date Time Temp Pulse Resp B/P (MAP) Pulse Ox O2 Delivery O2 Flow Rate FiO2 07/31/19 12:00 97.7 75 20 150/75 (100) 95 07/31/19 09:00 Room Air 07/31/19 08:08 83 149/78 07/31/19 08:08 149/78 07/31/19 08:00 97.5 83 20 149/78 (101) 95 07/31/19 04:00 97.0 76 20 147/75 (99) 95 07/31/19 00:00 97.9 89 18 150/56 (87) 96 07/30/19 21:00 Room Air 07/30/19 20:00 98.4 70 18 148/77 (100) 96 07/30/19 16:00 98.4 86 18 144/80 (101) 97 I&O Intake and Output 07/30/19 07/31/19 18:59 06:59 Intake Total 1666.666 ml 550 ml Balance 1666.666 ml 550 ml Intake Oral 800 ml IV Total 866.666 ml 550 ml # Voids 10 2 # Bowel Movements 1 Dressing: other Wound: other Drains: other Cardiovascular: RSR Respiratory: clear Abdomen: soft, flat, non-tender, present bowel sounds, non-distended Extremities: edema, no cyanosis, other Plan Problems: (1) Cellulitis Assessment & Plan: 64-year-old female with potentially infected left lateral ankle stage IV ulcer. Wound evaluated bedside and noted to be stage IV with palpable bone on the lateral aspect of the left ankle. Mild serous drainage but no purulent drainage. Periwound cellulitis and skin macerated. Pulses diminished distally. Tender. Motor neurosensory intact with sensory bearing somewhat diminished Positive for osteomyelitis of the distal fibula, due to the area of ulceration. Small ankle joint effusion Edema of the subcutaneous fat in the region of the marked ulcer, likely cellulitis. There is also edema of the deep plantar compartment which could indicate cellulitis/myositis. No acute surgical intervention, needs abx and local wound care for now Local wound care. Podiatry consultation appreciated discussed with podiatry. plan for local wound care and abx. d/c to snf with cont f/u Keep leg elevated when in bed Heel protectors elevate heel from pressure with pillows Turn every 2 hours Offload pressure as patient is at risk for developing decubiti Antibiotic as per ID; appreciate input and recs labs improved d/c planning Thank you will follow with recommendations (2) Wound infection Paddy Stephens Jul 31, 2019 12:25
--- NOTE | 2019-07-31 13:19 | Infectious Diseases Prog Note ---
Assessment/Plan Assessment/Plan IMPRESSION: 1. Cellulitis, wound infection in the left foot, lateral ankle. 2. The patient has pressure ulcer. 3. Alzheimer's dementia. 4. Diabetes mellitus. 5. Hypertension. 6. Psychosis. 7. Osteomyelitis of distal fibula 8. Positive culture with Staph Warneri, contamination RECOMMENDATION: Continue IV vancomycin X 5 more weeks Disc PICC line placement for long-term antibiotic Subjective ROS Limited/Unobtainable: Yes Constitutional: Reports: no symptoms, fever Allergies: Coded Allergies: No Known Allergies (Unverified , 07/26/19) Objective Vital Signs Last 24 Hour Vital Signs Date Time Temp Pulse Resp B/P (MAP) Pulse Ox O2 Delivery O2 Flow Rate FiO2 07/31/19 12:00 97.7 75 20 150/75 (100) 95 07/31/19 09:00 Room Air 07/31/19 08:08 83 149/78 07/31/19 08:08 149/78 07/31/19 08:00 97.5 83 20 149/78 (101) 95 07/31/19 04:00 97.0 76 20 147/75 (99) 95 07/31/19 00:00 97.9 89 18 150/56 (87) 96 07/30/19 21:00 Room Air 07/30/19 20:00 98.4 70 18 148/77 (100) 96 07/30/19 16:00 98.4 86 18 144/80 (101) 97 Height (Feet): 5 Height (Inches): 4.00 Weight (Pounds): 161 General Appearance: no acute distress HEENT: mucous membranes moist Respiratory/Chest: lungs clear Cardiovascular: normal rate Abdomen: soft, non tender Extremities: no edema Skin: ulcers, other - left foot Neurologic/Psychiatric: alert, responsive Current Medications Medications (Trade) Dose Ordered Sig/Reagan Route PRN Reason Start Time Stop Time Status Last Admin Dose Admin Acetaminophen (Tylenol) 650 mg Q4H PRN ORAL Mild Pain/Temp > 100.5 07/26/19 15:30 08/25/19 15:29 Amlodipine Besylate (Norvasc) 10 mg DAILY ORAL 07/28/19 09:00 08/26/19 08:59 07/31/19 08:08 Atorvastatin Calcium (Lipitor) 40 mg BEDTIME ORAL 07/26/19 21:00 08/25/19 20:59 07/30/19 21:11 Chlorhexidine Gluconate (Viri-Hex 2%) 1 applic DAILY@2000 TOPIC 07/29/19 20:00 08/28/19 19:59 07/30/19 20:00 Dextrose (Dextrose 50%) 25 ml Q30M PRN IV Hypoglycemia 07/26/19 15:30 08/25/19 15:29 Dextrose (Dextrose 50%) 50 ml Q30M PRN IV Hypoglycemia 07/26/19 15:30 08/25/19 15:29 Docusate Sodium (Colace) 100 mg THREE TIMES A DAY ORAL 07/27/19 13:00 08/26/19 12:59 07/31/19 12:17 Donepezil HCl (Aricept) 10 mg QHS ORAL 07/26/19 21:00 08/25/19 20:59 07/30/19 21:10 Insulin Aspart (NovoLOG) BEFORE MEALS AND HS SUBQ 07/26/19 16:30 08/25/19 16:29 07/31/19 12:18 Insulin Detemir (Levemir) 30 units DAILY SUBQ 07/27/19 09:00 08/26/19 08:59 07/31/19 08:09 Lisinopril (ZestriL) 10 mg DAILY ORAL 07/28/19 09:00 08/26/19 08:59 07/31/19 08:08 Pantoprazole (Protonix) 40 mg DAILY ORAL 07/27/19 09:00 08/26/19 08:59 07/31/19 08:08 Potassium Chloride/Sodium Chloride 1,000 ml @ 50 mls/hr Q20H IV 07/27/19 12:00 08/26/19 11:59 07/30/19 23:00 Quetiapine Fumarate (SEROqueL) 25 mg QHS ORAL 07/26/19 21:00 08/25/19 20:59 07/30/19 21:11 Vancomycin HCl (Vanco rx to dose) 1 ea DAILY PRN MISC Per rx protocol 07/26/19 19:15 08/25/19 19:14 Vancomycin HCl 750 mg/Sodium Chloride 275 ml @ 183.333 mls/hr Q12HR@1100,2300 IVPB 07/28/19 23:00 08/05/19 22:59 07/31/19 10:31 Amador Verduzco MD Jul 31, 2019 13:19
[2019-07-31] MEDS: NS w/KCl 40mEq 1,000 ML IV SCH (15:20)
--- NOTE | 2019-07-31 15:30 | Nephrology Progress Note ---
Assessment/Plan Problem List: (1) Diabetic nephropathy (2) Electrolyte imbalance Assessment: Low K (3) HTN (hypertension) (4) Diabetes mellitus Assessment Proteinuria HypoKalemia Cellulitis infected left lateral ankle stage IV ulcer. Wound infection DM / Proteinuria / Nephropathy HTN Plan no labs today Slow Hydrate K and mag Supplement as needed wound care / Antibiotics BS and BP in check Subjective ROS Limited/Unobtainable: No Constitutional: Reports: malaise Objective Objective Last 24 Hour Vital Signs Date Time Temp Pulse Resp B/P (MAP) Pulse Ox O2 Delivery O2 Flow Rate FiO2 07/31/19 12:00 97.7 75 20 150/75 (100) 95 07/31/19 09:00 Room Air 07/31/19 08:08 83 149/78 07/31/19 08:08 149/78 07/31/19 08:00 97.5 83 20 149/78 (101) 95 07/31/19 04:00 97.0 76 20 147/75 (99) 95 07/31/19 00:00 97.9 89 18 150/56 (87) 96 07/30/19 21:00 Room Air 07/30/19 20:00 98.4 70 18 148/77 (100) 96 07/30/19 16:00 98.4 86 18 144/80 (101) 97 Intake and Output 07/30/19 07/31/19 19:00 07:00 Intake Total 1616.666 ml 600 ml Balance 1616.666 ml 600 ml Intake Oral 800 ml IV Total 816.666 ml 600 ml # Voids 10 2 # Bowel Movements 1 Height (Feet): 5 Height (Inches): 4.00 Weight (Pounds): 161 General Appearance: no apparent distress Objective no change Abraham Marroquin MD Jul 31, 2019 15:30
[2019-07-31 16:00] VITALS: BP 144/73
[2019-07-31 20:00] VITALS: BP 131/75
[2019-07-31] MEDS: Dyna-Hex 2% Top Sol 2oz TOPIC SCH (20:00)
[2019-07-31] MEDS: Atorvastatin 20mg tab ORAL SCH (20:26)
[2019-07-31] MEDS: Donepezil 10mg tab ORAL SCH (20:26)
--- NOTE | 2019-07-31 20:46 | General Progress Note ---
Assessment/Plan Problem List: (1) Diabetic nephropathy ICD Codes: E11.21 - Type 2 diabetes mellitus with diabetic nephropathy SNOMED: 523573134 (2) Electrolyte imbalance ICD Codes: E87.8 - Other disorders of electrolyte and fluid balance, not elsewhere classified SNOMED: 769646812 (3) HTN (hypertension) ICD Codes: I10 - Essential (primary) hypertension SNOMED: 43824367 (4) Diabetes mellitus ICD Codes: E11.9 - Type 2 diabetes mellitus without complications SNOMED: 62748549 (5) Wound infection ICD Codes: T14.8XXA - Other injury of unspecified body region, initial encounter; L08.9 - Local infection of the skin and subcutaneous tissue, unspecified SNOMED: 09987698 (6) Cellulitis ICD Codes: L03.90 - Cellulitis, unspecified SNOMED: 461950395 Status: progressing Assessment/Plan: sugar is improving continue abx niddm diabetic foot infection improving cellulitis of feet abx per id obesity Subjective ROS Limited/Unobtainable: Yes Constitutional: Reports: no symptoms Allergies: Coded Allergies: No Known Allergies (Unverified , 07/26/19) Objective Last 24 Hour Vital Signs Date Time Temp Pulse Resp B/P (MAP) Pulse Ox O2 Delivery O2 Flow Rate FiO2 07/31/19 20:06 Room Air 07/31/19 16:00 97.0 77 19 144/73 (96) 96 07/31/19 12:00 97.7 75 20 150/75 (100) 95 07/31/19 09:00 Room Air 07/31/19 08:08 83 149/78 07/31/19 08:08 149/78 07/31/19 08:00 97.5 83 20 149/78 (101) 95 07/31/19 04:00 97.0 76 20 147/75 (99) 95 07/31/19 00:00 97.9 89 18 150/56 (87) 96 07/30/19 21:00 Room Air Intake and Output 07/30/19 07/31/19 19:00 07:00 Intake Total 1616.666 ml 600 ml Balance 1616.666 ml 600 ml Intake Oral 800 ml IV Total 816.666 ml 600 ml # Voids 10 2 # Bowel Movements 1 Height (Feet): 5 Height (Inches): 4.00 Weight (Pounds): 161 Cardiovascular: normal rate Respiratory/Chest: lungs clear Abdomen: soft Silvano Aguilera MD Jul 31, 2019 20:46
[2019-08-01] VITALS: BP 126/53
[2019-08-01 04:00] VITALS: BP 146/76
[2019-08-01] MEDS: NovoLOG Insulin Flexpen SUBQ SCH ×4 (06:22→21:00)
[2019-08-01 08:00] VITALS: BP 167/83
[2019-08-01] MEDS: Levemir Flexpen SUBQ SCH (08:33)
[2019-08-01] MEDS: Docusate 100mg cap ORAL SCH ×3 (08:35→17:19)
[2019-08-01] MEDS: Lisinopril 10mg tab ORAL SCH (08:35)
--- NOTE | 2019-08-01 10:53 | Infectious Diseases Prog Note ---
Assessment/Plan Assessment/Plan IMPRESSION: 1. Cellulitis, wound infection in the left foot, lateral ankle. 2. The patient has pressure ulcer. 3. Alzheimer's dementia. 4. Diabetes mellitus. 5. Hypertension. 6. Psychosis. 7. Osteomyelitis of distal fibula 8. Positive culture with Staph Warneri, contamination RECOMMENDATION: Continue IV vancomycin X 34 Discharge to SNF after PICC line placement Subjective ROS Limited/Unobtainable: Yes Constitutional: Denies: fever Allergies: Coded Allergies: No Known Allergies (Unverified , 07/26/19) Objective Vital Signs Last 24 Hour Vital Signs Date Time Temp Pulse Resp B/P (MAP) Pulse Ox O2 Delivery O2 Flow Rate FiO2 08/01/19 09:00 Room Air 08/01/19 08:35 79 167/83 08/01/19 08:35 167/83 08/01/19 08:00 98.0 79 18 167/83 (111) 96 08/01/19 04:00 97.0 68 18 146/76 (99) 95 08/01/19 00:00 97.3 75 18 126/53 (77) 96 07/31/19 20:06 Room Air 07/31/19 20:00 97.0 70 18 131/75 (93) 96 07/31/19 16:00 97.0 77 19 144/73 (96) 96 07/31/19 12:00 97.7 75 20 150/75 (100) 95 Height (Feet): 5 Height (Inches): 4.00 Weight (Pounds): 161 General Appearance: no acute distress HEENT: mucous membranes moist Respiratory/Chest: lungs clear Cardiovascular: normal rate Abdomen: soft, non tender Extremities: no edema Skin: ulcers, other - left ankle Neurologic/Psychiatric: alert, disoriented Laboratory Tests Test 07/31/19 21:50 Vancomycin Level Trough 18.6 ug/mL (5.0-12.0) H Current Medications Medications (Trade) Dose Ordered Sig/Reagan Route PRN Reason Start Time Stop Time Status Last Admin Dose Admin Acetaminophen (Tylenol) 650 mg Q4H PRN ORAL Mild Pain/Temp > 100.5 07/26/19 15:30 08/25/19 15:29 Amlodipine Besylate (Norvasc) 10 mg DAILY ORAL 07/28/19 09:00 08/26/19 08:59 08/01/19 08:35 Atorvastatin Calcium (Lipitor) 40 mg BEDTIME ORAL 07/26/19 21:00 08/25/19 20:59 07/31/19 20:26 Chlorhexidine Gluconate (Viri-Hex 2%) 1 applic DAILY@2000 TOPIC 07/29/19 20:00 08/28/19 19:59 07/30/19 20:00 Dextrose (Dextrose 50%) 25 ml Q30M PRN IV Hypoglycemia 07/26/19 15:30 08/25/19 15:29 Dextrose (Dextrose 50%) 50 ml Q30M PRN IV Hypoglycemia 07/26/19 15:30 08/25/19 15:29 Docusate Sodium (Colace) 100 mg THREE TIMES A DAY ORAL 07/27/19 13:00 08/26/19 12:59 08/01/19 08:35 Donepezil HCl (Aricept) 10 mg QHS ORAL 07/26/19 21:00 08/25/19 20:59 07/31/19 20:26 Insulin Aspart (NovoLOG) BEFORE MEALS AND HS SUBQ 07/26/19 16:30 08/25/19 16:29 08/01/19 06:22 Insulin Detemir (Levemir) 30 units DAILY SUBQ 07/27/19 09:00 08/26/19 08:59 08/01/19 08:33 Lisinopril (ZestriL) 10 mg DAILY ORAL 07/28/19 09:00 08/26/19 08:59 08/01/19 08:35 Pantoprazole (Protonix) 40 mg DAILY ORAL 07/27/19 09:00 08/26/19 08:59 08/01/19 08:35 Potassium Chloride/Sodium Chloride 1,000 ml @ 50 mls/hr Q20H IV 07/27/19 12:00 08/26/19 11:59 07/31/19 15:20 Quetiapine Fumarate (SEROqueL) 25 mg QHS ORAL 07/26/19 21:00 08/25/19 20:59 07/31/19 20:26 Vancomycin HCl (Vanco rx to dose) 1 ea DAILY PRN MISC Per rx protocol 07/26/19 19:15 08/25/19 19:14 Vancomycin/Sodium Chloride 275 ml @ 183.333 mls/hr Q24H IVPB 08/02/19 12:00 09/04/19 23:59 Amador Verduzco MD Aug 01, 2019 10:53
[2019-08-01] MEDS: NS w/KCl 40mEq 1,000 ML IV SCH (11:36)
[2019-08-01 12:00] VITALS: BP 149/82
--- NOTE | 2019-08-01 13:12 | Diagnostic Imaging Report ---
Indication: oil heaterman venous access Findings: After the indications, procedure, risks, complications, and alternatives of the procedure were explained, written informed consent was obtained. The left upper extremity was prepped with alcohol. All elements of maximal sterile barrier technique were followed including usage of a cap, mask, sterile gown, sterile gloves, hand hygiene and a large sterile sheet. Sonographic evaluation of the upper extremity was performed demonstrating a patent and compressible basilic vein. Access was obtained under real-time ultrasound guidance (with utilization of sterile gel and sterile probe cover) and digital image was saved and archived. An .018 wire was introduced. Needle exchanged for a 5 Welsh peel-away sheath. Measurements were obtained. A 5 Welsh dual-lumen Power PICC line catheter was cut to 45 cm and introduced over the wire. Peel-away sheath and wire were removed.Catheter was secured to the skin using 2-0 Prolene suture. Both ports aspirate and flush easily. A single fluoroscopic image shows the distal tip in the superior vena cava. Total fluoroscopic time was 19 seconds. Impression: Successful placement of an upper extremity PICC line catheter
--- NOTE | 2019-08-01 13:47 | Nephrology Progress Note ---
Assessment/Plan Problem List: (1) Diabetic nephropathy (2) Electrolyte imbalance Assessment: Low K (3) HTN (hypertension) (4) Diabetes mellitus Assessment Proteinuria HypoKalemia Cellulitis infected left lateral ankle stage IV ulcer. Wound infection DM / Proteinuria / Nephropathy HTN Plan no labs today Slow Hydrate K and mag Supplement as needed wound care / Antibiotics BS and BP in check Subjective ROS Limited/Unobtainable: No Constitutional: Reports: malaise Objective Objective Last 24 Hour Vital Signs Date Time Temp Pulse Resp B/P (MAP) Pulse Ox O2 Delivery O2 Flow Rate FiO2 08/01/19 12:00 98.6 84 19 149/82 (104) 97 08/01/19 09:00 Room Air 08/01/19 08:35 79 167/83 08/01/19 08:35 167/83 08/01/19 08:00 98.0 79 18 167/83 (111) 96 08/01/19 04:00 97.0 68 18 146/76 (99) 95 08/01/19 00:00 97.3 75 18 126/53 (77) 96 07/31/19 20:06 Room Air 07/31/19 20:00 97.0 70 18 131/75 (93) 96 07/31/19 16:00 97.0 77 19 144/73 (96) 96 Intake and Output 07/31/19 08/01/19 18:59 06:59 Intake Total 1726.666 ml 600 ml Balance 1726.666 ml 600 ml Intake Oral 860 ml IV Total 866.666 ml 600 ml # Voids 8 1 Laboratory Tests 07/31/19 21:50: Vancomycin Level Trough 18.6H Height (Feet): 5 Height (Inches): 4.00 Weight (Pounds): 161 General Appearance: no apparent distress Objective no change Abraham Marroquin MD Aug 01, 2019 13:47
[2019-08-01 16:00] VITALS: BP 142/77
--- NOTE | 2019-08-01 18:41 | Surgery Progress Note ---
Surgery Progress Note Subjective Symptoms: improved, pain absent, tolerating diet, passing flatus Objective Last 24 Hour Vital Signs Date Time Temp Pulse Resp B/P (MAP) Pulse Ox O2 Delivery O2 Flow Rate FiO2 08/01/19 16:00 97.9 80 20 142/77 (98) 98 08/01/19 12:00 98.6 84 19 149/82 (104) 97 08/01/19 09:00 Room Air 08/01/19 08:35 79 167/83 08/01/19 08:35 167/83 08/01/19 08:00 98.0 79 18 167/83 (111) 96 08/01/19 04:00 97.0 68 18 146/76 (99) 95 08/01/19 00:00 97.3 75 18 126/53 (77) 96 07/31/19 20:06 Room Air 07/31/19 20:00 97.0 70 18 131/75 (93) 96 I&O Intake and Output 07/31/19 08/01/19 19:00 07:00 Intake Total 1676.666 ml 650 ml Balance 1676.666 ml 650 ml Intake Oral 860 ml IV Total 816.666 ml 650 ml # Voids 8 1 Dressing: dry Wound: clean Cardiovascular: RSR Respiratory: clear Abdomen: soft, non-tender, present bowel sounds Extremities: edema, no tenderness, no cyanosis Laboratory Tests Test 07/31/19 21:50 Vancomycin Level Trough 18.6 ug/mL (5.0-12.0) H Plan Problems: (1) Cellulitis Assessment & Plan: 64-year-old female with potentially infected left lateral ankle stage IV ulcer. Wound evaluated bedside and noted to be stage IV with palpable bone on the lateral aspect of the left ankle. Mild serous drainage but no purulent drainage. Periwound cellulitis and skin macerated. Pulses diminished distally. Tender. Motor neurosensory intact with sensory bearing somewhat diminished Positive for osteomyelitis of the distal fibula, due to the area of ulceration. Small ankle joint effusion Edema of the subcutaneous fat in the region of the marked ulcer, likely cellulitis. There is also edema of the deep plantar compartment which could indicate cellulitis/myositis. No acute surgical intervention, needs abx and local wound care for now Local wound care. Podiatry consultation appreciated discussed with podiatry. plan for local wound care and abx. d/c to snf with cont f/u Keep leg elevated when in bed Heel protectors elevate heel from pressure with pillows Turn every 2 hours Offload pressure as patient is at risk for developing decubiti Antibiotic as per ID; appreciate input and recs labs improved d/c planning Thank you will follow with recommendations (2) Wound infection Paddy Stephens Aug 01, 2019 18:41
[2019-08-01 20:00] VITALS: BP 138/82
--- NOTE | 2019-08-01 20:12 | General Progress Note ---
Assessment/Plan Problem List: (1) Diabetic nephropathy ICD Codes: E11.21 - Type 2 diabetes mellitus with diabetic nephropathy SNOMED: 650261843 (2) Electrolyte imbalance ICD Codes: E87.8 - Other disorders of electrolyte and fluid balance, not elsewhere classified SNOMED: 056535191 (3) HTN (hypertension) ICD Codes: I10 - Essential (primary) hypertension SNOMED: 54792070 (4) Diabetes mellitus ICD Codes: E11.9 - Type 2 diabetes mellitus without complications SNOMED: 17517900 (5) Wound infection ICD Codes: T14.8XXA - Other injury of unspecified body region, initial encounter; L08.9 - Local infection of the skin and subcutaneous tissue, unspecified SNOMED: 40425885 (6) Cellulitis ICD Codes: L03.90 - Cellulitis, unspecified SNOMED: 524384284 Status: progressing Assessment/Plan: osteomylitis dc to snf niddm diabetic foot infection improving cellulitis of feet abx per id obesity Subjective ROS Limited/Unobtainable: Yes Allergies: Coded Allergies: No Known Allergies (Unverified , 07/26/19) Objective Last 24 Hour Vital Signs Date Time Temp Pulse Resp B/P (MAP) Pulse Ox O2 Delivery O2 Flow Rate FiO2 08/01/19 16:00 97.9 80 20 142/77 (98) 98 08/01/19 12:00 98.6 84 19 149/82 (104) 97 08/01/19 09:00 Room Air 08/01/19 08:35 79 167/83 08/01/19 08:35 167/83 08/01/19 08:00 98.0 79 18 167/83 (111) 96 08/01/19 04:00 97.0 68 18 146/76 (99) 95 08/01/19 00:00 97.3 75 18 126/53 (77) 96 Intake and Output 07/31/19 08/01/19 19:00 07:00 Intake Total 1676.666 ml 650 ml Balance 1676.666 ml 650 ml Intake Oral 860 ml IV Total 816.666 ml 650 ml # Voids 8 1 Laboratory Tests 07/31/19 21:50: Vancomycin Level Trough 18.6H Height (Feet): 5 Height (Inches): 4.00 Weight (Pounds): 161 Cardiovascular: normal rate Respiratory/Chest: lungs clear Abdomen: soft Silvano Aguilera MD Aug 01, 2019 20:12
[2019-08-01] MEDS: Atorvastatin 20mg tab ORAL SCH (21:29)
[2019-08-01] MEDS: Donepezil 10mg tab ORAL SCH (21:29)
[2019-08-02] VITALS (7 sets, daily range): BP systolic 138–161; BP diastolic 75–97
[2019-08-02] MEDS: NovoLOG Insulin Flexpen SUBQ SCH ×3 (06:17→16:38)
[2019-08-02 06:23] LABS: BASOPHILS % (AUTO) 0.9 % (0.0-2.0); EOSINOPHILS % (AUTO) 5.1 % (0.0-3.0); HEMATOCRIT 39.8 % (37.0-47.0); HEMOGLOBIN 13.4 G/DL (12.0-16.0); LYMPHOCYTES % (AUTO) 21.8 % (20.0-45.0); MEAN CORPUSCULAR VOLUME 87 FL (80-99); MONOCYTES % (AUTO) 4.7 % (1.0-10.0); NEUTROPHILS % (AUTO) 67.5 % (45.0-75.0); PLATELET COUNT 234 K/UL (150-450); RED BLOOD COUNT 4.59 M/UL (4.20-5.40); RED CELL DISTRIBUTION WIDTH 11.7 % (11.6-14.8)
[2019-08-02 07:12] LABS: ALANINE AMINOTRANSFERASE 28 U/L (12-78); ALBUMIN 3.1 G/DL (3.4-5.0); ALBUMIN/GLOBULIN RATIO 0.7 (1.0-2.7); ALKALINE PHOSPHATASE 70 U/L (46-116); ANION GAP 7 mmol/L (5-15); ASPARTATE AMINO TRANSFERASE 24 U/L (15-37); BILIRUBIN,TOTAL 0.5 MG/DL (0.2-1.0); BLOOD UREA NITROGEN 18 mg/dL (7-18); CALCIUM 8.9 MG/DL (8.5-10.1); CARBON DIOXIDE 31 MMOL/L (21-32); CHLORIDE 104 MMOL/L (98-107); CREATININE 0.8 MG/DL (0.55-1.30); PHOSPHORUS 3.6 MG/DL (2.5-4.9); POTASSIUM 3.4 MMOL/L (3.5-5.1); SODIUM 142 MMOL/L (136-145)
[2019-08-02] MEDS: Lisinopril 10mg tab ORAL SCH (08:38)
[2019-08-02] MEDS: Docusate 100mg cap ORAL SCH ×3 (08:38→17:15)
[2019-08-02] MEDS: Levemir Flexpen SUBQ SCH (08:43)
--- NOTE | 2019-08-02 11:31 | Surgery Progress Note ---
Surgery Progress Note Subjective Symptoms: improved, pain absent, tolerating diet, voiding well, passing flatus , BM Objective Last 24 Hour Vital Signs Date Time Temp Pulse Resp B/P (MAP) Pulse Ox O2 Delivery O2 Flow Rate FiO2 08/02/19 08:38 72 161/97 08/02/19 08:38 161/97 08/02/19 08:00 98.2 72 20 161/97 (118) 97 08/02/19 08:00 Room Air 08/02/19 04:00 98.5 90 19 145/76 (99) 98 80 08/02/19 00:00 98.5 90 19 145/76 (99) 98 80 08/01/19 21:00 Room Air 08/01/19 20:00 97.9 80 18 138/82 (100) 98 80 08/01/19 16:00 97.9 80 20 142/77 (98) 98 08/01/19 12:00 98.6 84 19 149/82 (104) 97 I&O Intake and Output 08/01/19 08/02/19 19:00 07:00 Intake Total 1430 ml Balance 1430 ml Intake Oral 880 ml IV Total 550 ml # Voids 6 3 Dressing: dry Wound: clean Cardiovascular: RSR Respiratory: clear Abdomen: soft, non-tender, present bowel sounds, non-distended Extremities: no cyanosis, other Laboratory Tests Test 08/02/19 05:40 White Blood Count 7.0 K/UL (4.8-10.8) Red Blood Count 4.59 M/UL (4.20-5.40) Hemoglobin 13.4 G/DL (12.0-16.0) Hematocrit 39.8 % (37.0-47.0) Mean Corpuscular Volume 87 FL (80-99) Mean Corpuscular Hemoglobin 29.2 PG (27.0-31.0) Mean Corpuscular Hemoglobin Concent 33.7 G/DL (32.0-36.0) Red Cell Distribution Width 11.7 % (11.6-14.8) Platelet Count 234 K/UL (150-450) Mean Platelet Volume 6.6 FL (6.5-10.1) Neutrophils (%) (Auto) 67.5 % (45.0-75.0) Lymphocytes (%) (Auto) 21.8 % (20.0-45.0) Monocytes (%) (Auto) 4.7 % (1.0-10.0) Eosinophils (%) (Auto) 5.1 % (0.0-3.0) H Basophils (%) (Auto) 0.9 % (0.0-2.0) Sodium Level 142 MMOL/L (136-145) Potassium Level 3.4 MMOL/L (3.5-5.1) L Chloride Level 104 MMOL/L (98-107) Carbon Dioxide Level 31 MMOL/L (21-32) Anion Gap 7 mmol/L (5-15) Blood Urea Nitrogen 18 mg/dL (7-18) Creatinine 0.8 MG/DL (0.55-1.30) Estimat Glomerular Filtration Rate > 60 mL/min (>60) Glucose Level 116 MG/DL (74-106) H Calcium Level 8.9 MG/DL (8.5-10.1) Phosphorus Level 3.6 MG/DL (2.5-4.9) Magnesium Level 1.6 MG/DL (1.8-2.4) L Total Bilirubin 0.5 MG/DL (0.2-1.0) Aspartate Amino Transf (AST/SGOT) 24 U/L (15-37) Alanine Aminotransferase (ALT/SGPT) 28 U/L (12-78) Alkaline Phosphatase 70 U/L (46-116) C-Reactive Protein, Quantitative < 0.4 mg/dL (0.00-0.90) Total Protein 7.6 G/DL (6.4-8.2) Albumin 3.1 G/DL (3.4-5.0) L Globulin 4.5 g/dL Albumin/Globulin Ratio 0.7 (1.0-2.7) L Plan Problems: (1) Cellulitis Assessment & Plan: 64-year-old female with potentially infected left lateral ankle stage IV ulcer. Wound evaluated bedside and noted to be stage IV with palpable bone on the lateral aspect of the left ankle. Mild serous drainage but no purulent drainage. Periwound cellulitis and skin macerated. Pulses diminished distally. Tender. Motor neurosensory intact with sensory bearing somewhat diminished Positive for osteomyelitis of the distal fibula, due to the area of ulceration. Small ankle joint effusion Edema of the subcutaneous fat in the region of the marked ulcer, likely cellulitis. There is also edema of the deep plantar compartment which could indicate cellulitis/myositis. No acute surgical intervention, needs abx and local wound care for now Local wound care. Podiatry consultation appreciated discussed with podiatry. plan for local wound care and abx. d/c to snf with cont f/u Keep leg elevated when in bed Heel protectors elevate heel from pressure with pillows Turn every 2 hours Offload pressure as patient is at risk for developing decubiti Antibiotic as per ID; appreciate input and recs labs improved d/c planning Thank you will follow with recommendations (2) Wound infection Paddy Stephens Aug 02, 2019 11:31
[2019-08-02] MEDS ORDERED: Vancomycin 1.25gm/NS Premix q24h IVPB SCH (12:00)
--- NOTE | 2019-08-02 12:24 | Nephrology Progress Note ---
Assessment/Plan Problem List: (1) Diabetic nephropathy (2) Electrolyte imbalance Assessment: Low K (3) HTN (hypertension) (4) Diabetes mellitus Assessment Proteinuria HypoKalemia Cellulitis infected left lateral ankle stage IV ulcer. Wound infection DM / Proteinuria / Nephropathy HTN Plan labs noted , low K and mag Slow Hydrate K and mag Supplement as needed wound care / Antibiotics BS and BP in check Subjective ROS Limited/Unobtainable: No Objective Objective Last 24 Hour Vital Signs Date Time Temp Pulse Resp B/P (MAP) Pulse Ox O2 Delivery O2 Flow Rate FiO2 08/02/19 12:05 97.9 73 16 152/87 (108) 96 08/02/19 10:00 150/83 (105) 08/02/19 08:38 72 161/97 08/02/19 08:38 161/97 08/02/19 08:00 98.2 72 20 161/97 (118) 97 08/02/19 08:00 Room Air 08/02/19 04:00 98.5 90 19 145/76 (99) 98 80 08/02/19 00:00 98.5 90 19 145/76 (99) 98 80 08/01/19 21:00 Room Air 08/01/19 20:00 97.9 80 18 138/82 (100) 98 80 08/01/19 16:00 97.9 80 20 142/77 (98) 98 Intake and Output 08/01/19 08/02/19 19:00 07:00 Intake Total 1430 ml Balance 1430 ml Intake Oral 880 ml IV Total 550 ml # Voids 6 3 Laboratory Tests 08/02/19 05:40: White Blood Count 7.0, Red Blood Count 4.59, Hemoglobin 13.4, Hematocrit 39.8, Mean Corpuscular Volume 87, Mean Corpuscular Hemoglobin 29.2, Mean Corpuscular Hemoglobin Concent 33.7, Red Cell Distribution Width 11.7, Platelet Count 234, Mean Platelet Volume 6.6, Neutrophils (%) (Auto) 67.5, Lymphocytes (%) (Auto) 21.8, Monocytes (%) (Auto) 4.7, Eosinophils (%) (Auto) 5.1H, Basophils (%) (Auto ) 0.9, Sodium Level 142, Potassium Level 3.4L, Chloride Level 104, Carbon Dioxide Level 31, Anion Gap 7, Blood Urea Nitrogen 18, Creatinine 0.8, Estimat Glomerular Filtration Rate > 60, Glucose Level 116H, Calcium Level 8.9, Phosphorus Level 3.6, Magnesium Level 1.6L, Total Bilirubin 0.5, Aspartate Amino Transf (AST/SGOT) 24, Alanine Aminotransferase (ALT/SGPT) 28, Alkaline Phosphatase 70, C-Reactive Protein, Quantitative < 0.4, Total Protein 7.6, Albumin 3.1L, Globulin 4.5, Albumin/Globulin Ratio 0.7L Height (Feet): 5 Height (Inches): 4.00 Weight (Pounds): 161 General Appearance: no apparent distress Objective no change Abraham Marroquin MD Aug 02, 2019 12:24
[2019-08-02] MEDS ORDERED: LORazepam Inj 2mg/ml 1ml IM SCH (13:30)
[2019-08-02] MEDS: Magnesium Oxide 400mg tab ORAL SCH ×2 (14:43→17:15)
--- NOTE | 2019-08-02 14:54 | Nephrology Progress Note ---
Assessment/Plan Problem List: (1) Diabetic nephropathy (2) Electrolyte imbalance Assessment: Low K (3) HTN (hypertension) (4) Diabetes mellitus Assessment Proteinuria HypoKalemia Cellulitis infected left lateral ankle stage IV ulcer. Wound infection DM / Proteinuria / Nephropathy HTN Plan had Picc line yesterday , but later patient pulled out labs noted , low K and mag Slow Hydrate K and mag Supplement as needed wound care / Antibiotics BS and BP in check Subjective ROS Limited/Unobtainable: No Constitutional: Reports: malaise Objective Objective Last 24 Hour Vital Signs Date Time Temp Pulse Resp B/P (MAP) Pulse Ox O2 Delivery O2 Flow Rate FiO2 08/02/19 12:05 97.9 73 16 152/87 (108) 96 08/02/19 10:00 150/83 (105) 08/02/19 08:38 72 161/97 08/02/19 08:38 161/97 08/02/19 08:00 98.2 72 20 161/97 (118) 97 08/02/19 08:00 Room Air 08/02/19 04:00 98.5 90 19 145/76 (99) 98 80 08/02/19 00:00 98.5 90 19 145/76 (99) 98 80 08/01/19 21:00 Room Air 08/01/19 20:00 97.9 80 18 138/82 (100) 98 80 08/01/19 16:00 97.9 80 20 142/77 (98) 98 Intake and Output 08/01/19 08/02/19 18:59 06:59 Intake Total 1480 ml Balance 1480 ml Intake Oral 880 ml IV Total 600 ml # Voids 6 3 Laboratory Tests 08/02/19 05:40: White Blood Count 7.0, Red Blood Count 4.59, Hemoglobin 13.4, Hematocrit 39.8, Mean Corpuscular Volume 87, Mean Corpuscular Hemoglobin 29.2, Mean Corpuscular Hemoglobin Concent 33.7, Red Cell Distribution Width 11.7, Platelet Count 234, Mean Platelet Volume 6.6, Neutrophils (%) (Auto) 67.5, Lymphocytes (%) (Auto) 21.8, Monocytes (%) (Auto) 4.7, Eosinophils (%) (Auto) 5.1H, Basophils (%) (Auto ) 0.9, Sodium Level 142, Potassium Level 3.4L, Chloride Level 104, Carbon Dioxide Level 31, Anion Gap 7, Blood Urea Nitrogen 18, Creatinine 0.8, Estimat Glomerular Filtration Rate > 60, Glucose Level 116H, Calcium Level 8.9, Phosphorus Level 3.6, Magnesium Level 1.6L, Total Bilirubin 0.5, Aspartate Amino Transf (AST/SGOT) 24, Alanine Aminotransferase (ALT/SGPT) 28, Alkaline Phosphatase 70, C-Reactive Protein, Quantitative < 0.4, Total Protein 7.6, Albumin 3.1L, Globulin 4.5, Albumin/Globulin Ratio 0.7L Height (Feet): 5 Height (Inches): 4.00 Weight (Pounds): 160 General Appearance: no apparent distress Objective no change Abraham Marroquin MD Aug 02, 2019 14:54
--- NOTE | 2019-08-02 15:06 | Diagnostic Imaging Report ---
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 The right upper extremity was prepped with alcohol. All elements of maximal sterile barrier technique were followed including usage of a cap, mask, sterile gown, sterile gloves, hand hygiene and a large sterile sheet. Sonographic evaluation of the upper extremity was performed demonstrating a patent and compressible basilic vein. Access was obtained under real-time ultrasound guidance (with utilization of sterile gel and sterile probe cover) and digital image was saved and archived. An .018 wire was introduced. Needle exchanged for a 5 Japanese peel-away sheath. Measurements were obtained. A 5 Japanese dual-lumen Power PICC line catheter was cut to 40 cm and introduced over the wire. Peel-away sheath and wire were removed.Catheter was secured to the skin using 2-0 Prolene suture. Both ports aspirate and flush easily. A single fluoroscopic image shows the distal tip in the superior vena cava. Total fluoroscopic time was 12 seconds. Impression: Successful placement of an upper extremity PICC line catheter
--- NOTE | 2019-08-02 16:30 | Infectious Diseases Prog Note ---
Assessment/Plan Assessment/Plan IMPRESSION: 1. Cellulitis, wound infection in the left foot, lateral ankle. 2. The patient has pressure ulcer. 3. Alzheimer's dementia. 4. Diabetes mellitus. 5. Hypertension. 6. Psychosis. 7. Osteomyelitis of distal fibula 8. Positive culture with Staph Warneri, contamination RECOMMENDATION: Continue IV vancomycin X 33 Discharge to SNF Subjective ROS Limited/Unobtainable: Yes Constitutional: Denies: fever Cardiovascular: Reports: other - remove PICC line before discharge last night, another line was placed Neurologic: Reports: confusion, other - on restraint Allergies: Coded Allergies: No Known Allergies (Unverified , 07/26/19) Objective Vital Signs Last 24 Hour Vital Signs Date Time Temp Pulse Resp B/P (MAP) Pulse Ox O2 Delivery O2 Flow Rate FiO2 08/02/19 12:05 97.9 73 16 152/87 (108) 96 08/02/19 10:00 150/83 (105) 08/02/19 08:38 72 161/97 08/02/19 08:38 161/97 08/02/19 08:00 98.2 72 20 161/97 (118) 97 08/02/19 08:00 Room Air 08/02/19 04:00 98.5 90 19 145/76 (99) 98 80 08/02/19 00:00 98.5 90 19 145/76 (99) 98 80 08/01/19 21:00 Room Air 08/01/19 20:00 97.9 80 18 138/82 (100) 98 80 Height (Feet): 5 Height (Inches): 4.00 Weight (Pounds): 160 General Appearance: no acute distress HEENT: mucous membranes moist Respiratory/Chest: lungs clear Cardiovascular: normal rate, other - R arm PICC line Abdomen: soft, non tender Extremities: no edema Skin: ulcers Neurologic/Psychiatric: alert, disoriented Laboratory Tests Test 08/02/19 05:40 White Blood Count 7.0 K/UL (4.8-10.8) Red Blood Count 4.59 M/UL (4.20-5.40) Hemoglobin 13.4 G/DL (12.0-16.0) Hematocrit 39.8 % (37.0-47.0) Mean Corpuscular Volume 87 FL (80-99) Mean Corpuscular Hemoglobin 29.2 PG (27.0-31.0) Mean Corpuscular Hemoglobin Concent 33.7 G/DL (32.0-36.0) Red Cell Distribution Width 11.7 % (11.6-14.8) Platelet Count 234 K/UL (150-450) Mean Platelet Volume 6.6 FL (6.5-10.1) Neutrophils (%) (Auto) 67.5 % (45.0-75.0) Lymphocytes (%) (Auto) 21.8 % (20.0-45.0) Monocytes (%) (Auto) 4.7 % (1.0-10.0) Eosinophils (%) (Auto) 5.1 % (0.0-3.0) H Basophils (%) (Auto) 0.9 % (0.0-2.0) Sodium Level 142 MMOL/L (136-145) Potassium Level 3.4 MMOL/L (3.5-5.1) L Chloride Level 104 MMOL/L (98-107) Carbon Dioxide Level 31 MMOL/L (21-32) Anion Gap 7 mmol/L (5-15) Blood Urea Nitrogen 18 mg/dL (7-18) Creatinine 0.8 MG/DL (0.55-1.30) Estimat Glomerular Filtration Rate > 60 mL/min (>60) Glucose Level 116 MG/DL (74-106) H Calcium Level 8.9 MG/DL (8.5-10.1) Phosphorus Level 3.6 MG/DL (2.5-4.9) Magnesium Level 1.6 MG/DL (1.8-2.4) L Total Bilirubin 0.5 MG/DL (0.2-1.0) Aspartate Amino Transf (AST/SGOT) 24 U/L (15-37) Alanine Aminotransferase (ALT/SGPT) 28 U/L (12-78) Alkaline Phosphatase 70 U/L (46-116) C-Reactive Protein, Quantitative < 0.4 mg/dL (0.00-0.90) Total Protein 7.6 G/DL (6.4-8.2) Albumin 3.1 G/DL (3.4-5.0) L Globulin 4.5 g/dL Albumin/Globulin Ratio 0.7 (1.0-2.7) L Current Medications Medications (Trade) Dose Ordered Sig/Reagan Route PRN Reason Start Time Stop Time Status Last Admin Dose Admin Acetaminophen (Tylenol) 650 mg Q4H PRN ORAL Mild Pain/Temp > 100.5 07/26/19 15:30 08/25/19 15:29 Amlodipine Besylate (Norvasc) 10 mg DAILY ORAL 07/28/19 09:00 08/26/19 08:59 08/02/19 08:38 Atorvastatin Calcium (Lipitor) 40 mg BEDTIME ORAL 07/26/19 21:00 08/25/19 20:59 08/01/19 21:29 Chlorhexidine Gluconate (Viri-Hex 2%) 1 applic DAILY@2000 TOPIC 08/02/19 20:00 09/01/19 19:59 Dextrose (Dextrose 50%) 25 ml Q30M PRN IV Hypoglycemia 07/26/19 15:30 08/25/19 15:29 Dextrose (Dextrose 50%) 50 ml Q30M PRN IV Hypoglycemia 07/26/19 15:30 08/25/19 15:29 Docusate Sodium (Colace) 100 mg THREE TIMES A DAY ORAL 07/27/19 13:00 08/26/19 12:59 08/02/19 12:26 Donepezil HCl (Aricept) 10 mg QHS ORAL 07/26/19 21:00 08/25/19 20:59 08/01/19 21:29 Insulin Aspart (NovoLOG) BEFORE MEALS AND HS SUBQ 07/26/19 16:30 08/25/19 16:29 08/02/19 12:26 Insulin Detemir (Levemir) 30 units DAILY SUBQ 07/27/19 09:00 08/26/19 08:59 08/02/19 08:43 Lisinopril (ZestriL) 10 mg DAILY ORAL 07/28/19 09:00 08/26/19 08:59 08/02/19 08:38 Magnesium Oxide (Mag-Ox 400mg) 400 mg THREE TIMES A DAY ORAL 08/02/19 13:00 09/01/19 12:59 08/02/19 14:43 Pantoprazole (Protonix) 40 mg DAILY ORAL 07/27/19 09:00 08/26/19 08:59 08/02/19 08:38 Potassium Chloride (K-Dur) 40 meq DAILY ORAL 08/02/19 09:45 09/01/19 09:44 08/02/19 10:01 Quetiapine Fumarate (SEROqueL) 25 mg QHS ORAL 07/26/19 21:00 08/25/19 20:59 08/01/19 21:29 Vancomycin HCl (Vanco rx to dose) 1 ea DAILY PRN MISC Per rx protocol 07/26/19 19:15 08/25/19 19:14 Vancomycin/Sodium Chloride 275 ml @ 183.333 mls/hr Q24H IVPB 08/02/19 12:00 09/04/19 23:59 08/02/19 14:52 Amador Verduzco MD Aug 02, 2019 16:29
[2019-08-02] MEDS ORDERED: Dyna-Hex 2% Top Sol 2oz TOPIC SCH (20:00)
--- NOTE | 2019-08-03 05:30 | Progress Note ---
DATE: 08/02/2019 SUBJECTIVE: The patient is in bed, has episodes of anxiety. The patient is more alert, forgetful, continues to be only on Seroquel now. MENTAL STATUS EXAMINATION: The patient is alert, oriented times self and place. Mood is anxious. Affect is constricted. Congruent with mood. Thought process is concrete. Thought content, no suicidal or homicidal ideations. The patient is forgetful. PLAN: 1. We will continue current psychotropic medications. 2. Provide the patient with reality orientation and supportive therapy. Tito Moreno M.D. DR: Ivon JOB#: [id number] CC:
--- NOTE | 2019-08-03 08:25 | Discharge Summary ---
Discharge Summary Discharge Summary _ DATE OF ADMISSION: 07/26/2019 DATE OF DISCHARGE: 08/02/2019 DISCHARGED BY: Dr. Aguilera REASON FOR ADMISSION: 64 years old female with past medical history of hypertension, diabetes, dementia, presented to emergency room for left foot infection. Patient reported severe pain in the left foot with any movement. Patient's history was limited due to her dementia. Upon evaluation vital signs were stable. Patient was afebrile. Laboratory work-up revealed no leukocytosis, stable hemoglobin , hematocrit and platelet count. ESR 73. CRP 3.3 Stable electrolytes. BUN 19, creatinine 1.2. Glucose 242. Stable LFT. Troponin negative. EKG revealed sinus rhythm, no acute ischemic changes. Albumin 3.0. Urinalysis revealed +2 protein , no evidence of urinary tract infection. Chest x-ray revealed no acute cardiopulmonary pathology. Left foot x-ray revealed no acute process. Clinical examination demonstrated ulcer in the left foot, tender to palpation with surrounding erythema. Patient started on empiric antibiotic for cellulitis and admitted for further management. CONSULTANTS: ID specialist Dr. Baker certified novell engineer Dr. Marroquin surgery Dr. Stephens fishing guide Dr. Magallanes psychiatrist [facility] COURSE: Patient admitted to medical surgical floor. Antibiotic provided as per ID specialist recommendation. Blood culture showed staph warneri, 1 out of 4 , likely contaminant as per ID specialist . Wound culture revealed Staph coagulase negative. X-ray of the left ankle revealed no acute process. MRI of the left ankle showed osteomyelitis of the distal fibula. PICC line was placed for long-term IV antibiotic. Patient will need total 6 weeks of antibiotic as per ID specialist. Surgeon and fishing guide followed. Local wound care provided as per surgeon and fishing guide recommendation. No surgical intervention was necessarily at this time. Continue local wound care at the facility and complete antibiotic treatment. Renal parameters and electrolytes were closely monitored. Electrolytes corrected as needed . Patient was on slow hydration. Blood pressure was managed with EMANUEL inhibitor and calcium channel lalit. Statin continued. Lipid panel was stable. Blood sugar was managed with long-acting insulin and sliding scale of insulin as needed. Hemoglobin A1c at goal -6.8. Stable TSH , folate and B12. Anemia work-up was consistent with anemia of chronic disease. Psychiatrist seen and evaluated patient. Per psychiatrist , patient had acute encephalopathy and major depressive disorder. Psychiatric medication regimen was optimized. Reality orientation and supportive therapy provided. Patient clinically stabilized and was ready for transfer back to [facility] facility for continuation of care. FINAL DIAGNOSES: Osteomyelitis of the left distal fibula Cellulitis left lateral ankle Stage IV pressure ulcer left ankle, infected Alzheimer's dementia Diabetes mellitus type 2 Diabetic nephropathy Proteinuria Hypertension Electrolyte imbalance Psychosis Acute encephalopathy Major depressive disorder DISCHARGE MEDICATIONS: See Medication Reconciliation list. DISCHARGE INSTRUCTIONS: Patient was discharged to the [facility] facility. Follow up with medical doctor at the facility. I have been assigned to dictate discharge summary for this account. I was not involved in the patient's management. Manuela Lake NP Aug 03, 2019 08:25
== END 2019-08-02 20:40 | DRG 539 ==
LOC: EDBD 10:16 → EMR 12:00 → 4E 13:39 → EDBEDREQ 14:18
PROC: 02HV33Z Insertion of Infusion Device into Superior Vena Cava, Percutaneous Approach (ICD-10-PCS; principal; 2019-08-01)
DX: M86.8X6 Other osteomyelitis, lower leg (principal); L89.524 Pressure ulcer of left ankle, stage 4; L03.116 Cellulitis of left lower limb; G93.40 Encephalopathy, unspecified; E11.21 Type 2 diabetes mellitus with diabetic nephropathy; E87.6 Hypokalemia; I10 Essential (primary) hypertension; Z79.4 Long term (current) use of insulin; Z87.891 Personal history of nicotine dependence; K21.9 Gastro-esophageal reflux disease without esophagitis; E78.5 Hyperlipidemia, unspecified; G30.9 Alzheimer's disease, unspecified; F02.80 Dementia in other diseases classified elsewhere, unspecified severity, without behavioral disturbance, psychotic disturbance, mood disturbance, and anxiety; F29 Unspecified psychosis not due to a substance or known physiological condition; F32.9 Major depressive disorder, single episode, unspecified; D63.8 Anemia in other chronic diseases classified elsewhere
CPT/HCPCS: 36415; 36569; 71045; 76937; 80053; 80061; 80202; 81003; 82550; 82553; 82607; 82728; 82746; 82962; 82977; 83036; 83540; 83550; 83605; 83735; 83880; 84100; 84443; 84484; 84550; 85025; 85610; 85651; 85730; 86140; 87040; 87070; 87081; 87181; 87205; 93005; 96365; 96366; 96368; 99285; J1815; J8499; S5561